=== PATIENT | female | born 1995 | race Caucasian/White ===

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

== ENCOUNTER 2017-11-03 07:06 | Emergency (ER) | payer OTHER ==
[2017-11-03 07:12] VITALS: BP 120/72; PULSE 104; TEMP 99; BMI 43.4
[2017-11-03 08:09] LABS: URINE APPEARANCE CLOUDY; URINE BILIRUBIN NEGATIVE (<2.0 mg/dL); URINE COLOR YELLOW; URINE GLUCOSE (UA) NEGATIVE (NEGATIVE); URINE KETONE NEGATIVE (NEGATIVE); URINE NITRITE NEGATIVE (NEGATIVE); URINE PROTEIN NEGATIVE (NEGATIVE); URINE UROBILINOGEN NEGATIVE mg/dL (0.2-1.0)
[2017-11-03 08:14] LABS: URINE LEUK ESTERASE 1+ (NEGATIVE)
[2017-11-03 08:17] LABS: EPI CELLS FEW /HPF (FEW); URINE BACTERIA RARE /hpf (NONE SEEN); URINE HYALINE CAST 1 /lpf; URINE MUCUS MODERATE
--- NOTE | 2017-11-03 08:27 | PDOC ---
History of Present Illness - General History Source: Patient Exam Limitations: No Limitations - History of Present Illness Initial Comments: 11/03/17 08:29 The patient is a 22 year old female, with a significant past medical history of chronic back pain (Fell 2 years ago), who presents to the emergency department complaining of back pain that has exacerbated. She reports that her pain is constant but has exacerbated today. She reports that she has been having pain since her fall. She describes her fall as localized in the lower back region, ranging from mild to moderate, without radiation. She notes that certain positions exacerbates her pain. She denies following up with any kind of specialists. She notes that she has not gotten her menstrual period in the past 2 years, which she doesnt know why. She denies any other kind of symptoms The patient denies chest pain, shortness of breath, headache or dizziness. Denies fever, chills, nausea, vomiting, diarrhea and constipation. Denies dysuria, frequency, urgency and hematuria. Allergies: None Past surgical history: None reported Social History: No alcohol, tobacco or drug use reported <Jose Yeager - Last Filed: 11/03/17 08:29> - General History Source: Patient Exam Limitations: No Limitations <Char Blackman - Last Filed: 11/03/17 09:32> - General Chief Complaint: Back Pain Stated Complaint: BACK PAIN Time Seen by Provider: 11/03/17 07:09 Past History <Jose Yeager - Last Filed: 11/03/17 08:29> - Past Medical History COPD: No - Immunization History Immunization Up to Date: Yes - Suicide/Smoking/Psychosocial Hx Smoking Status: No Smoking History: Never smoked Number of Cigarettes Smoked Daily: 0 Hx Alcohol Use: No <Char Blackman - Last Filed: 11/03/17 09:32> - Past Medical History Allergies/Adverse Reactions: Allergies Allergy/AdvReac Type Severity Reaction Status Date / Time No Known Allergies Allergy Verified 11/03/17 07:12 Home Medications: Ambulatory Orders Naproxen [Naprosyn -] 500 mg PO BID PRN #14 tablet 08/19/16 Ibuprofen [Motrin -] 600 mg PO TID #90 tablet MDD 3 11/03/17 Review of Systems - Review of Systems Able to Perform ROS?: Yes Comments:: 11/03/17 08:29 GENERAL/CONSTITUTIONAL: No fever or chills. No weakness. HEAD, EYES, EARS, NOSE AND THROAT: No change in vision. No ear pain or discharge. No sore throat. CARDIOVASCULAR: No chest pain or shortness of breath. RESPIRATORY: No cough, wheezing, or hemoptysis. GASTROINTESTINAL: No nausea, vomiting, diarrhea or constipation. GENITOURINARY: No dysuria, frequency, or change in urination. MUSCULOSKELETAL: (+) Back pain. No joint or muscle swelling or pain. No neck pain. SKIN: No rash NEUROLOGIC: No headache, vertigo, loss of consciousness, or change in strength/ sensation. ENDOCRINE: No increased thirst. No abnormal weight change. HEMATOLOGIC/LYMPHATIC: No anemia, easy bleeding, or history of blood clots. ALLERGIC/IMMUNOLOGIC: No hives or skin allergy. <Jose Yeager - Last Filed: 11/03/17 08:29> *Physical Exam - Vital Signs Last Vital Signs Temp Pulse Resp BP Pulse Ox 99.0 F 104 H 20 120/72 8 L 11/03/17 07:09 11/03/17 07:09 11/03/17 07:09 11/03/17 07:09 11/03/17 07:09 - Physical Exam Comments: 11/03/17 08:29 GENERAL: Awake, alert, and fully oriented, in no acute distress HEAD: No signs of trauma EYES: PERRLA, EOMI, sclera anicteric, conjunctiva clear ENT: Auricles normal inspection, nares patent. Moist mucosa NECK: Normal ROM, supple, no JVD, or masses LUNGS: Breath sounds equal, clear to auscultation bilaterally. No wheezes, and no crackles HEART: Regular rate and rhythm, normal S1 and S2, no murmurs, rubs or gallops ABDOMEN: Soft, nontender, normoactive bowel sounds. No guarding, no rebound. No masses MUSCULOSKELETAL: (+) Paraspinal tendernes on the right side over the muscle. No CVA tenderness. EXTREMITIES: Normal range of motion, no edema. No clubbing or cyanosis. No cords, erythema, or tenderness NEUROLOGICAL: Alert and oriented x 3. Moves all extremities. Face is symmetric. 5/5 strength in lower extremities bilaterally. Sensation intact in all extremities. SKIN: Warm, Dry, normal turgor, no rashes or lesions noted. <Jose Yeager - Last Filed: 11/03/17 08:29> - Vital Signs Last Vital Signs Temp Pulse Resp BP Pulse Ox 99.0 F 104 H 20 120/72 8 L 11/03/17 07:09 11/03/17 07:09 11/03/17 07:09 11/03/17 07:09 11/03/17 07:09 <Char Blackman - Last Filed: 11/03/17 09:32> ED Treatment Course - ADDITIONAL ORDERS Additional order review: Laboratory Results 11/03/17 07:48 Urine Color Yellow Urine Appearance Cloudy Urine pH 6.0 Ur Specific [place] 1.018 Urine Protein Negative Urine Glucose (UA) Negative Urine Ketones Negative Urine Blood Negative Urine Nitrite Negative Urine Bilirubin Negative Urine Urobilinogen Negative Ur Leukocyte Esterase 1+ H <Jose Yeager - Last Filed: 11/03/17 08:29> - ADDITIONAL ORDERS Additional order review: Laboratory Results 11/03/17 07:48 Urine Color Yellow Urine Appearance Cloudy Urine pH 6.0 Ur Specific [place] 1.018 Urine Protein Negative Urine Glucose (UA) Negative Urine Ketones Negative Urine Blood Negative Urine Nitrite Negative Urine Bilirubin Negative Urine Urobilinogen Negative Ur Leukocyte Esterase 1+ H <Char Blackman - Last Filed: 11/03/17 09:32> Medical Decision Making - Medical Decision Making 11/03/17 08:22 22-year-old female with a history of chronic low back pain here today complaining of low back pain for the last few days. She has had intermittently for 2 years states she was moving some things a few days ago may have exacerbated her symptoms denies any weakness numbness tingling no urinary complaints pain is moderate and worse with bending X On exam she is fully intact for strength and sensation in lower extremities has right paraspinal muscle spasm and tenderness X No signs of neurological compromise likely sciatica low back strain will treat with Motrin recommend follow-up with PCP for outpatient physical therapy [facility] rule out UTI and <Char Blackman - Last Filed: 11/03/17 09:32> *DC/Admit/Observation/Transfer - Attestations Scribe Attestion: 11/03/17 08:29 Documentation prepared by Jose Yeager, acting as medical records tech for Char Blackman MD <Jose Yeager - Last Filed: 11/03/17 08:29> - Discharge Dispostion Decision to Admit order: No <Char Blackman - Last Filed: 11/03/17 09:32> Diagnosis at time of Disposition: Low back strain - Discharge Dispostion Disposition: HOME Condition at time of disposition: Improved - Prescriptions Prescriptions: Ibuprofen [Motrin -] 600 mg PO TID #90 tablet MDD 3 - Referrals Referrals: Linda Nguyen [Primary Care Provider] - - Patient Instructions Printed Discharge Instructions: Back Pain (Alternative Therapy) Additional Instructions: Take motrin 600 mg every 8 hrs as needed for pain. return for any weakness, or numbness or any concerns you should follow up with your primary doctor to discuss physical therapy - Post Discharge Activity
[2017-11-03] MEDS ORDERED: KETOROLAC TROMETHAMINE 30 MG/1 ML VIAL IM ONE (09:32)
[2017-11-03] MEDS ORDERED: KETOROLAC TROMETHAMINE 30 MG/1 ML VIAL ONE (09:33)
== END 2017-11-03 10:00 | disposition home or self-care (01) ==
LOC: JER 07:06
PROC: 3E0233Z Introduction of Anti-inflammatory into Muscle, Percutaneous Approach (ICD-10-PCS; principal; 2017-11-03)
DX: S39.012A Strain of muscle, fascia and tendon of lower back, initial encounter (principal); X50.0XXA Overexertion from strenuous movement or load, initial encounter; Y93.89 Activity, other specified; Y92.89 Other specified places as the place of occurrence of the external cause; Y99.8 Other external cause status
CPT/HCPCS: 81003; 81015; 84703; 96372; 99281-25

== ENCOUNTER 2017-11-20 16:44 | Emergency (ER) | payer OTHER ==
[2017-11-20 17:03] VITALS: BP 130/68; PULSE 100; TEMP 98.6; BMI 42.0
--- NOTE | 2017-11-20 17:03 | PDOC ---
Rapid Medical Evaluation Time Seen by Provider: 11/20/17 17:00 Medical Evaluation: Allergies Allergy/AdvReac Type Severity Reaction Status Date / Time No Known Allergies Allergy Verified 11/20/17 17:00 11/20/17 17:00 I have performed a brief in-person evaluation of this patient. The patient presents with a chief complaint of: c/o itching to vagina x 1 week. Denies fevers/ or discharge, Pertinent physical exam findings: deferred I have ordered the following: UA/ UCG The patient will proceed to the ED for further evaluation. 11/20/17 17:02
[2017-11-20 17:35] LABS: URINE APPEARANCE CLEAR; URINE BILIRUBIN NEGATIVE (<2.0 mg/dL); URINE BLOOD NEGATIVE (NEGATIVE); URINE COLOR YELLOW; URINE GLUCOSE (UA) NEGATIVE (NEGATIVE); URINE KETONE NEGATIVE (NEGATIVE); URINE LEUK ESTERASE NEGATIVE (NEGATIVE); URINE NITRITE NEGATIVE (NEGATIVE); URINE PROTEIN NEGATIVE (NEGATIVE); URINE UROBILINOGEN NEGATIVE mg/dL (0.2-1.0)
[2017-11-20] MEDS ORDERED: FLUCONAZOLE 100 MG TABLET (UD) PO ONE (18:18)
--- NOTE | 2017-11-20 18:24 | PDOC ---
History of Present Illness - General Chief Complaint: Vaginal Sxs Stated Complaint: INFECTION Time Seen by Provider: 11/20/17 17:00 History Source: Patient Exam Limitations: No Limitations - History of Present Illness Initial Comments: 11/20/17 18:23 22 year old female with no medical or surgical history presents with complaints of vaginal irritation x 2 weeks. Patient states no vaginal discharge, just burning, itching and irritation of vagina. Worse when showering or walking. States vagina swelling. used vagisil cream externally with no relief. Never been sexually active 11/20/17 18:25 Timing/Duration: reports: constant Quality: reports: moderate Pain Radiation: reports: no radiation Activities at Onset: reports: none Treatment Prior to Arrive: improves with: other (vagisil cream) Aggravating Factors: improves with: None Alleviating Factors: improves with: None Past History - Travel Traveled outside of the country in the last 30 days: No Close contact w/someone who was outside of country & ill: No - Past Medical History Allergies/Adverse Reactions: Allergies Allergy/AdvReac Type Severity Reaction Status Date / Time No Known Allergies Allergy Verified 11/20/17 17:00 Home Medications: Ambulatory Orders NK [No Known Home Medication] 11/20/17 COPD: No - Immunization History Immunization Up to Date: Yes - Suicide/Smoking/Psychosocial Hx Smoking Status: No Smoking History: Never smoked Number of Cigarettes Smoked Daily: 0 Hx Alcohol Use: No Abd/GI Specific PMHX - Complaint Specific PMHX Colitis: No Diverticulitis: No Gall Bladder Disease: No Irritable Bowel Synd (IBS): No Pancreatitis: No Review of Systems - Review of Systems Able to Perform ROS?: Yes Is the patient limited Croatian proficient: No Constitutional: No: Chills, Fever HEENTM: No: Nose Pain, Nose Congestion, Throat Swelling, Mouth Pain Respiratory: No: Orthopnea, Shortness of Breath, Wheezing, Productive cough Cardiac (ROS): No: Chest Pain, Lightheadedness, Palpitations ABD/GI: No: Abdominal Distended, Blood Streaked Bowels, Poor Appetite : Yes: Burning. No: Discharge, Frequency, Hematuria, Incontinence Musculoskeletal: No: Back Pain, Muscle Weakness Integumentary: No: Bruising, Other Neurological: No: Headache Psychiatric: No: Stressors Endocrine: No: Excessive Sweating *Physical Exam - Vital Signs Last Vital Signs Temp Pulse Resp BP Pulse Ox 98.6 F 100 H 20 130/68 97 11/20/17 17:00 11/20/17 17:00 11/20/17 17:00 11/20/17 17:00 11/20/17 17:00 - Physical Exam General Appearance: Yes: Nourished, Appropriately Dressed. No: Apparent Distress HEENT: positive: EOMI, TATYANA, TMs Normal, Pharynx Normal Neck: positive: Supple. 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 NML intact, Fully Oriented Medical Decision Making - Medical Decision Making 11/20/17 18:27 22 year old female with vaginal irritation, itching and swelling x 2 weeks genital culture diflucan urinalysis sent *DC/Admit/Observation/Transfer Diagnosis at time of Disposition: Vaginitis and vulvovaginitis - Discharge Dispostion Disposition: HOME Condition at time of disposition: Good Decision to Admit order: No - Referrals Referrals: Macho Jang MD [Staff Physician] - - Patient Instructions Printed Discharge Instructions: DI for Vaginal Yeast Infection, DI for Vaginal Itching Additional Instructions: Please include slovak yogurt in your diet. May continue to use vagisil externally Call wardrobe specialty worker for follow up appointment if symptoms persist - Post Discharge Activity Forms/Work/School Notes: Back to Work
[2017-11-20] MEDS ORDERED: FLUCONAZOLE 100 MG TABLET (UD) ONE (18:25)
[2017-11-20 18:26] LABS: HCG,QUALITATIVE URINE NEGATIVE
== END 2017-11-20 18:57 | disposition home or self-care (01) ==
LOC: JERFT 16:44
DX: N76.0 Acute vaginitis (principal)
CPT/HCPCS: 81003; 84703; 87070; 87205; 99281-25

== ENCOUNTER 2018-03-18 15:12 | Emergency (ER) | payer OTHER ==
[2018-03-18 15:18] VITALS: BP 144/60; PULSE 125; TEMP 98.9; BMI 44.8
--- NOTE | 2018-03-18 15:19 | PDOC ---
Rapid Medical Evaluation Time Seen by Provider: 03/18/18 15:14 Medical Evaluation: Allergies Allergy/AdvReac Type Severity Reaction Status Date / Time No Known Allergies Allergy Verified 11/20/17 17:00 I have performed a brief in-person evaluation of this patient. The patient presents with a chief complaint of: left sided back pain that radiates to left side since yesterday. Worse with movement and deep breaths. Patient was training and picking up heavy objects today, which made worse. Pertinent physical exam findings: reproducible pain with palpation of left lower thoracic paravertebral muscles. +left CVA TTP and left flank pain I have ordered the following: hcg, UA/culture, labs The patient will proceed to the ED for further evaluation Discharge Disposition - Diagnosis Back pain, Flank pain - Referrals - Patient Instructions - Post Discharge Activity
[2018-03-18 15:50] LABS: EOS % 0.8 % (0-4.5); HEMATOCRIT 39.8 % (32.4-45.2); HEMOGLOBIN 13.4 GM/dL (10.7-15.3); LYMPH % 29.6 % (8-40); MCHC 33.6 g/dl (32.0-36.0); MEAN CELL VOLUME 86.4 fl (80-96); MEAN PLT VOLUME 7.9 fl (7.5-11.1); MONO % 5.2 % (3.8-10.2); NEUT % 63.4 % (42.8-82.8); PLATELET COUNT 357 K/MM3 (134-434); RBC 4.61 M/mm3 (3.60-5.2); RDW 13.6 % (11.6-15.6); WHITE BLOOD COUNT 11.7 K/mm3 (4.0-10.0)
[2018-03-18 16:14] LABS: ALBUMIN 3.6 g/dl (3.4-5.0); ALK PHOS 91 U/L (45-117); ANION GAP 7 MMOL/L (8-16); BILIRUBIN,TOTAL 0.2 mg/dL (0.2-1); BLOOD UREA NITROGEN 7 mg/dL (7-18); CHLORIDE 105 mmol/L (98-107); CO2 26 mmol/L (21-32); CREATININE 0.8 mg/dL (0.55-1.3); GLUCOSE,RANDOM 106 mg/dL (74-106); POTASSIUM 4.1 mmol/L (3.5-5.1); SGOT/AST 38 U/L (15-37); SGPT/ALT 65 U/L (13-61); SODIUM 138 mmol/L (136-145); TOT PROT 7.6 g/dl (6.4-8.2)
[2018-03-18 16:28] LABS: URINE APPEARANCE CLOUDY; URINE BILIRUBIN NEGATIVE (<2.0 mg/dL); URINE COLOR YELLOW; URINE GLUCOSE (UA) NEGATIVE (NEGATIVE); URINE KETONE NEGATIVE (NEGATIVE); URINE NITRITE NEGATIVE (NEGATIVE); URINE PROTEIN NEGATIVE (NEGATIVE); URINE UROBILINOGEN NEGATIVE mg/dL (0.2-1.0)
[2018-03-18 16:34] LABS: HCG,QUALITATIVE URINE Negative; URINE LEUK ESTERASE 2+ (NEGATIVE)
[2018-03-18 16:41] LABS: EPI CELLS MODERATE /HPF (FEW); URINE BACTERIA RARE /hpf (NONE SEEN); URINE MUCUS RARE
[2018-03-18] MEDS ORDERED: KETOROLAC TROMETHAMINE 15 MG/ML VIAL IVPUSH ONE (17:07)
[2018-03-18] MEDS ORDERED: SODIUM CHLORIDE 1,000 ML IV STA (17:07)
--- NOTE | 2018-03-18 17:07 | PDOC ---
History of Present Illness - General Chief Complaint: Pain, Acute Stated Complaint: BACK PAIN, SOB Time Seen by Provider: 03/18/18 15:14 Past History - Past Medical History Allergies/Adverse Reactions: Allergies Allergy/AdvReac Type Severity Reaction Status Date / Time No Known Allergies Allergy Verified 03/18/18 15:17 Home Medications: Ambulatory Orders Cephalexin Monohydrate [Keflex -] 500 mg PO BID #14 capsule 03/18/18 Ibuprofen 800 mg PO TID #30 tablet 03/18/18 COPD: No - Immunization History Immunization Up to Date: Yes - Suicide/Smoking/Psychosocial Hx Smoking Status: No Smoking History: Never smoked Number of Cigarettes Smoked Daily: 0 Hx Alcohol Use: No *Physical Exam - Vital Signs Last Vital Signs Temp Pulse Resp BP Pulse Ox 98.9 F 125 H 18 144/60 97 03/18/18 15:14 03/18/18 15:14 03/18/18 15:14 03/18/18 15:14 03/18/18 15:14 ED Treatment Course - LABORATORY CBC & Chemistry Diagram: 03/18/18 15:37 03/18/18 15:37 - ADDITIONAL ORDERS Additional order review: Laboratory Results 03/18/18 03/18/18 16:00 15:37 Sodium 138 Potassium 4.1 Chloride 105 Carbon Dioxide 26 Anion Gap 7 L BUN 7 Creatinine 0.8 Creat Clearance w eGFR > 60 Random Glucose 106 Calcium 9.0 Total Bilirubin 0.2 AST 38 H ALT 65 H Alkaline Phosphatase 91 Total Protein 7.6 Albumin 3.6 Urine Color Yellow Urine Appearance Cloudy Urine pH 6.0 Ur Specific [place] 1.023 Urine Protein Negative Urine Glucose (UA) Negative Urine Ketones Negative Urine Blood Negative Urine Nitrite Negative Urine Bilirubin Negative Urine Urobilinogen Negative Ur Leukocyte Esterase 2+ H Urine WBC (Auto) 8 Urine RBC (Auto) 5 Ur Epithelial Cells Moderate Urine Bacteria Rare Urine Mucus Rare Urine HCG, Qual Negative 03/18/18 15:37 RBC 4.61 MCV 86.4 MCHC 33.6 RDW 13.6 MPV 7.9 Neutrophils % 63.4 Lymphocytes % 29.6 Monocytes % 5.2 Eosinophils % 0.8 Basophils % 1.0 *DC/Admit/Observation/Transfer Diagnosis at time of Disposition: Back pain Qualifiers: Back pain location: thoracic back pain Chronicity: acute Back pain laterality: left Qualified Code(s): M54.6 - Pain in thoracic spine UTI (urinary tract infection) Qualifiers: Urinary tract infection type: acute cystitis Hematuria presence: without hematuria Qualified Code(s): N30.00 - Acute cystitis without hematuria - Discharge Dispostion Disposition: HOME Condition at time of disposition: Stable Decision to Admit order: No - Referrals Referrals: Rogerio Tejeda MD [Staff Physician] - - Patient Instructions Printed Discharge Instructions: DI for Urinary Tract Infection (UTI), DI for Thoracic Back Pain Additional Instructions: You have a urinary tract infection. This caused by bacteria. Please drink plenty of fluids. Take your antibiotics as prescribed. Finish the entire dose even if you feel better. You may take Tylenol or Motrin as needed for pain Please follow up with your primary care doctor this week. Return to the emergency department if you have fevers, chills, nausea, vomiting , back pain, or have any changes in your symptoms. You have back pain due to a muscle spasm. Please take ibuprofen 800 mg 3 times a day not to exceed 3000 mg a day. You may use warm compresses on your back to help with her symptoms. Please follow-up with your primary care doctor. If your symptoms do not resolve in 3-5 days, follow-up with orthopedics. A referral has been provided for you. Return to the emergency department if you have worsening back pain, bladder or bowel incontinence, numbness and tingling in her legs, changes in the way you walk, or any new or worsening symptoms. - Post Discharge Activity Forms/Work/School Notes: Back to Work
[2018-03-18] MEDS ORDERED: KETOROLAC TROMETHAMINE 15 MG/ML VIAL ONE (17:10)
== END 2018-03-18 18:43 | disposition home or self-care (01) ==
LOC: JERFT 15:12
PROC: 3E0337Z Introduction of Electrolytic and Water Balance Substance into Peripheral Vein, Percutaneous Approach (ICD-10-PCS; principal; 2018-03-18)
PROC: 3E0333Z Introduction of Anti-inflammatory into Peripheral Vein, Percutaneous Approach (ICD-10-PCS; 2018-03-18)
DX: N30.00 Acute cystitis without hematuria (principal)
CPT/HCPCS: 36415; 80053; 81003; 81015; 84703; 85025; 87086; 96361; 96374; 99281-25; J7030

== ENCOUNTER 2018-07-02 06:51 | Observation (INO) | payer OTHER ==
--- NOTE | 2018-07-02 07:13 | PDOC ---
History of Present Illness - General Chief Complaint: Pain, Acute Stated Complaint: R SIDED PAIN Time Seen by Provider: 07/02/18 07:13 History Source: Patient Exam Limitations: No Limitations - History of Present Illness Initial Comments: 07/02/18 07:35 CHIEF COMPLAINT: HISTORY OF PRESENT ILLNESS: This is an otherwise healthy 22-year-old female with recent ED visit for back pain/UTI who presents today for evaluation of right upper abdominal pain. she reports that the pain woke her from sleep at 3am today and has been constant since. She has had nausea without vomiting. She denies fevers/chills, constipation, diarrhea, or any other symptoms. She denies travel, recently eating in restaurants, and sick contacts. She has not taken any medications for her symptoms. 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 Sahni (?) [address] REVIEW OF SYSTEMS: GENERAL/CONSTITUTIONAL: No fever or chills. No weakness. No weight change. HEAD, EYES, EARS, NOSE AND THROAT: No change in vision. No ear pain or discharge. No sore throat. CARDIOVASCULAR: No chest pain or palpitations. RESPIRATORY: No cough, wheezing, or shortness of breath. GASTROINTESTINAL: See HPI. GENITOURINARY: No dysuria, frequency, or change in urination. LMP x 3 yrs ago, has not consulted a physician. MUSCULOSKELETAL: No joint or muscle swelling or pain. No neck or back pain. SKIN: No rash or easy bruising. NEUROLOGIC: No headache, vertigo, loss of consciousness, or loss of sensation. PSYCHIATRIC: No depression or anxiety. ENDOCRINE: No increased thirst. No abnormal weight change. HEMATOLOGIC/LYMPHATIC: No anemia, easy bleeding, or history of blood clots. ALLERGIC/IMMUNOLOGIC: No hives or skin allergy. No latex allergy. PHYSICAL EXAM: GENERAL: The patient is awake, alert, and fully oriented, in some distress secondary to pain. HEAD: Normal with no signs of trauma. ENT: Pupils equal, round and reactive to light, extraocular movements intact, sclera anicteric, conjunctiva clear. Neck supple. LUNGS: Clear to auscultation bilaterally. Normal excursion. No respiratory distress or use of accessory muscles. CV: RRR, S1/S2, no MRG. Cap refill < 2 sec. ABDOMEN: Soft, obese, tender to gentle palpation in RUQ. No other focal tenderness. EXTREMITIES: Normal range of motion, no edema. NEUROLOGICAL: Normal speech, normal gait. CN II-XII grossly intact. PSYCH: Normal mood, normal affect. SKIN: Warm, dry, normal turgor, no rashes or lesions noted. 07/02/18 13:37 Past History - Past Medical History Allergies/Adverse Reactions: Allergies Allergy/AdvReac Type Severity Reaction Status Date / Time No Known Allergies Allergy Verified 07/02/18 07:07 Home Medications: Ambulatory Orders NK [No Known Home Medication] 07/02/18 COPD: No - Immunization History Immunization Up to Date: Yes - Suicide/Smoking/Psychosocial Hx Smoking Status: No Smoking History: Never smoked Number of Cigarettes Smoked Daily: 0 Hx Alcohol Use: No *Physical Exam - Vital Signs Last Vital Signs Temp Pulse Resp BP Pulse Ox 98.2 F 98 H 14 127/86 97 07/02/18 07:04 07/02/18 07:04 07/02/18 07:04 07/02/18 07:04 07/02/18 07:04 Moderate Sedation - Procedure Monitoring Vital Signs: Procedure Monitoring Vital Signs Temperature 98.2 F 07/02/18 07:04 Pulse Rate 98 H 07/02/18 07:04 Respiratory Rate 14 07/02/18 07:04 Blood Pressure 127/86 07/02/18 07:04 O2 Sat by Pulse Oximetry (%) 97 07/02/18 07:04 ED Treatment Course - LABORATORY CBC & Chemistry Diagram: 07/02/18 07:58 07/02/18 07:58 Medical Decision Making - Medical Decision Making 07/02/18 08:41 A/P: Healthy 22-year-old female with RUQ pain and nausea. Differential includes but is not limited to cholelithiasis, cholecystitis, musculoskeletal pain. 1. CXR 2. RUQ u/s 3. Labs including CBC, CMP, lipase, UA/urine hcg 4. Toradol 30mg IV for pain 5. Re-assess WBC mildly elevated at 10.1, LFTs within normal limits. 07/02/18 09:48 Pain unchanged following Toradol. Will give morphine 4mg IVP. 07/02/18 10:47 Pain improved, however still with some tender (primarily epigastric) on exam. U/s without definite evidence of cholecystitis; there is hepatomegaly with fatty infiltration and possible sludge. LFTs are within normal limits. Still with pain. Given Maaolox and Pepcid without improvement. 07/02/18 13:02 Patient re-evaluated and complains of severe pain. Will give Ofirmev 1g IVPB. Patient does not feel well enough to go home. Will place in observation with surgical consultation. *DC/Admit/Observation/Transfer Diagnosis at time of Disposition: Biliary colic - Discharge Dispostion Condition at time of disposition: Guarded Decision to Admit order: Yes - Referrals Referrals: Linda Nguyen [Primary Care Provider] - - Patient Instructions - Post Discharge Activity
[2018-07-02] MEDS ORDERED: KETOROLAC TROMETHAMINE 30 MG/1 ML VIAL IVPUSH ONE (07:49)
[2018-07-02] MEDS ORDERED: KETOROLAC TROMETHAMINE 30 MG/1 ML VIAL ONE (08:04)
[2018-07-02 08:06] LABS: BASO % 0.6 % (0-2.0); HEMATOCRIT 39.1 % (32.4-45.2); HEMOGLOBIN 13.7 GM/dL (10.7-15.3); MCH 30.1 pg (25.7-33.7); MCHC 35.1 g/dl (32.0-36.0); MEAN CELL VOLUME 85.9 fl (80-96); MEAN PLT VOLUME 7.9 fl (7.5-11.1); MONO % 5.4 % (3.8-10.2); PLATELET COUNT 323 K/MM3 (134-434); RBC 4.55 M/mm3 (3.60-5.2); WHITE BLOOD COUNT 10.1 K/mm3 (4.0-10.0)
[2018-07-02 08:13] LABS: HCG,QUALITATIVE URINE Negative
[2018-07-02 08:18] LABS: URINE APPEARANCE SLCLOUDY; URINE BILIRUBIN NEGATIVE (<2.0 mg/dL); URINE COLOR YELLOW; URINE GLUCOSE (UA) NEGATIVE (NEGATIVE); URINE KETONE NEGATIVE (NEGATIVE); URINE LEUK ESTERASE TRACE (NEGATIVE); URINE NITRITE NEGATIVE (NEGATIVE); URINE PROTEIN NEGATIVE (NEGATIVE)
[2018-07-02 08:34] LABS: ALBUMIN 3.5 g/dl (3.4-5.0); ALK PHOS 81 U/L (45-117); ANION GAP 8 MMOL/L (8-16); BILIRUBIN,TOTAL 0.3 mg/dL (0.2-1); BLOOD UREA NITROGEN 10 mg/dL (7-18); CALCIUM 9.3 mg/dL (8.5-10.1); CHLORIDE 105 mmol/L (98-107); CO2 26 mmol/L (21-32); CREATININE 0.6 mg/dL (0.55-1.3); GLUCOSE,RANDOM 100 mg/dL (74-106); LIPASE 146 U/L (73-393); POTASSIUM 4.4 mmol/L (3.5-5.1); SGOT/AST 23 U/L (15-37); SGPT/ALT 44 U/L (13-61); SODIUM 139 mmol/L (136-145); TOT PROT 7.2 g/dl (6.4-8.2)
[2018-07-02 08:54] LABS: EPI CELLS FEW /HPF (FEW); URINE HYALINE CAST 1 /lpf; URINE MUCUS FEW
[2018-07-02] MEDS ORDERED: morphine CARPU-JECT 4 MG/1 ML DISP.SYRIN IVPUSH ONE (09:48)
[2018-07-02] MEDS ORDERED: morphine SULFATE 4 MG/ML VIAL ONE (09:55)
[2018-07-02] MEDS ORDERED: RANITIDINE HCL 150 MG TABLET (FP) PO ONE (10:49)
[2018-07-02] MEDS ORDERED: MAG HYDROX/AL HYDROX/SIMETH 30 ML UNIT-DOSE CUP PO ONE (10:49)
[2018-07-02] MEDS ORDERED: RANITIDINE HCL 150 MG TABLET (FP) ONE (10:57)
[2018-07-02] MEDS ORDERED: MAG HYDROX/AL HYDROX/SIMETH 30 ML UNIT-DOSE CUP ONE (10:57)
--- NOTE | 2018-07-02 11:12 | PDOC ---
*Physical Exam - Vital Signs Last Vital Signs Temp Pulse Resp BP Pulse Ox 98.2 F 98 H 14 127/86 97 07/02/18 07:04 07/02/18 07:04 07/02/18 07:04 07/02/18 07:04 07/02/18 07:04 - Physical Exam Comments: 07/02/18 11:10 Vital signs normal, urine negative No jaundice or pallor, moist mucosa Heart is regular, lungs are clear Epigastric discomfort to palpation without guarding or rebound, no guarding the right upper quadrant, no CVA tenderness ED Treatment Course - LABORATORY CBC & Chemistry Diagram: 07/02/18 07:58 07/02/18 07:58 - ADDITIONAL ORDERS Additional order review: Laboratory Results 07/02/18 07/02/18 07:58 07:58 Sodium 139 Potassium 4.4 Chloride 105 Carbon Dioxide 26 Anion Gap 8 BUN 10 Creatinine 0.6 Creat Clearance w eGFR > 60 Random Glucose 100 Calcium 9.3 Total Bilirubin 0.3 AST 23 ALT 44 Alkaline Phosphatase 81 Total Protein 7.2 Albumin 3.5 Lipase 146 Urine Color Yellow Urine Appearance Slcloudy Urine pH 5.0 Ur Specific [place] 1.024 Urine Protein Negative Urine Glucose (UA) Negative Urine Ketones Negative Urine Blood Negative Urine Nitrite Negative Urine Bilirubin Negative Urine Urobilinogen 2.0 H Ur Leukocyte Esterase Trace Urine WBC (Auto) 6 Urine RBC (Auto) 1 Ur Epithelial Cells Few Hyaline Casts 1 Urine Mucus Few Urine HCG, Qual Negative 07/02/18 07:58 RBC 4.55 MCV 85.9 MCHC 35.1 RDW 13.0 MPV 7.9 Neutrophils % 63.0 Lymphocytes % 30.0 Monocytes % 5.4 Eosinophils % 1.0 Basophils % 0.6 - Medications Given in the ED: ED Medications Discontinued Medications Generic Name Dose Route Start Last Admin Trade Name Freq PRN Reason Stop Dose Admin Al Hydroxide/Mg Hydroxide 30 ml 07/02/18 10:49 07/02/18 10:58 Mylanta Oral Suspension - PO 07/02/18 10:50 30 ml ONCE ONE Administration Ketorolac Tromethamine 30 mg 07/02/18 07:49 07/02/18 08:07 Toradol Injection - IVPUSH 07/02/18 07:50 30 mg ONCE ONE Administration Morphine Sulfate 4 mg 07/02/18 09:48 07/02/18 10:01 Morphine Injection - IVPUSH 07/02/18 09:49 4 mg ONCE ONE Administration Ranitidine HCl 150 mg 07/02/18 10:49 07/02/18 10:58 Zantac - PO 07/02/18 10:50 150 mg ONCE ONE Administration Medical Decision Making - Medical Decision Making 07/02/18 11:10 Healthy 22-year-old female presents with upper abdominal pain with nonbloody nonbilious nausea/vomiting that awoke her from sleep around 3 AM, no history of recurrent postprandial abdominal pain, no history of gastritis or ulcers or endoscopies, last meal was 5 PM and denies any excessive alcohol or NSAID use. Exam localizes to the epigastric region Presentation seems most consistent with gastritis, rule out biliary disease versus pancreatitis. Labs are within normal limits, white count 10.1 with normal LFTs and lipase Ultrasound shows no evidence of cholecystitis but some sludge without wall thickening By mouth trial, surgery to see, disposition accordingly *DC/Admit/Observation/Transfer - Referrals Referrals: Linda Nguyen [Primary Care Provider] - - Patient Instructions - Post Discharge Activity
[2018-07-02] MEDS ORDERED: ONDANSETRON 4 MG/2 ML VIAL IVPUSH ONE (11:47)
[2018-07-02] MEDS ORDERED: ONDANSETRON 4 MG/2 ML VIAL ONE (11:55)
[2018-07-02] MEDS ORDERED: ACETAMINOPHEN 1000 MG/100 ML VIAL (NON FORMULARY) IVPB ONE (13:04)
[2018-07-02] MEDS ORDERED: ACETAMINOPHEN INJECTION 100 ML IVPB ONE (13:39)
[2018-07-02] MEDS ORDERED: ONDANSETRON 4 MG/2 ML VIAL IVPUSH PRN (18:58)
[2018-07-02] MEDS ORDERED: SODIUM CHLORIDE 1,000 ML IV SCH (19:00)
[2018-07-02] MEDS ORDERED: ACETAMINOPHEN 1000 MG/100 ML VIAL (NON FORMULARY) IVPB PRN (19:01)
--- NOTE | 2018-07-02 19:11 | HP ---
Admitting History and Physical - Admission Chief Complaint: RUQ pain History of Present Illness: Patient is a 22 y/o female with no significant past medical history. Patient states that she woke up at 3am to RUQ pain with nausea. Pain is described as constant, sharp, and non-radiating. LFTs normal. Abdominal US show hepatomegaly with fatty infiltration versus hepatocellular disease, suggestion of poorly visualized small sludge layering posteriorly without sonographic evidence of acute cholecystitis She denies any vomiting, diarrhea, fever. History Source: Patient Limitations to Obtaining History: No Limitations - Smoking History Smoking history: Never smoked Aproximately how many cigarettes per day: 0 - Alcohol/Substance Use Hx Alcohol Use: No - Social History ADL: Independent History of Recent Travel: No <Adry Givens - Last Filed: 07/02/18 19:25> Home Medications <Adry Givens - Last Filed: 07/02/18 19:25> <Deangelo Escalera - Last Filed: 07/05/18 21:22> - Allergies Allergies/Adverse Reactions: Allergies Allergy/AdvReac Type Severity Reaction Status Date / Time No Known Allergies Allergy Verified 07/02/18 07:07 - Home Medications Home Medications: Ambulatory Orders Ursodiol [Actigal -] 300 mg PO BID #28 capsule 07/05/18 levoFLOXacin [Levaquin -] 500 mg PO DAILY #6 tablet 07/05/18 metroNIDAZOLE [Flagyl -] 250 mg PO TID #42 tablet 07/05/18 Review of Systems - Review of Systems Constitutional: reports: No Symptoms Eyes: reports: No Symptoms HENT: reports: No Symptoms Neck: reports: No Symptoms Cardiovascular: reports: No Symptoms Respiratory: reports: No Symptoms Gastrointestinal: reports: Abdominal Pain (RUQ), Nausea Genitourinary: reports: No Symptoms Breasts: reports: No Symptoms Reported Musculoskeletal: reports: No Symptoms Integumentary: reports: No Symptoms Neurological: reports: No Symptoms Endocrine: reports: No Symptoms Hematology/Lymphatic: reports: No Symptoms Psychiatric: reports: No Symptoms <Adry Givens - Last Filed: 07/02/18 19:25> Physical Examination Vital Signs: Vital Signs Temperature 98.0 F 07/02/18 17:07 Pulse Rate 80 07/02/18 17:07 Respiratory Rate 18 07/02/18 17:07 Blood Pressure 106/56 L 07/02/18 17:07 O2 Sat by Pulse Oximetry (%) 98 07/02/18 17:07 Constitutional: Yes: Well Nourished, Calm Eyes: Yes: Conjunctiva Clear Neck: Yes: Supple Cardiovascular: Yes: Regular Rate and Rhythm Respiratory: Yes: Regular, CTA Bilaterally Gastrointestinal: Yes: Normal Bowel Sounds, Soft, Tenderness (RUQ, epigastric) Musculoskeletal: Yes: WNL Extremities: Yes: WNL Edema: No Integumentary: Yes: WNL Neurological: Yes: Alert, Oriented Psychiatric: Yes: Alert, Oriented Labs: CBC, BMP 07/02/18 07:58 07/02/18 07:58 <Adry Givens - Last Filed: 07/02/18 19:25> Vital Signs: Vital Signs Temperature 97.8 F 07/05/18 05:00 Pulse Rate 91 H 07/05/18 10:00 Respiratory Rate 18 07/05/18 10:00 Blood Pressure 122/67 07/05/18 10:00 O2 Sat by Pulse Oximetry (%) 98 07/05/18 01:00 Labs: CBC, BMP 07/05/18 06:30 07/05/18 06:30 <Deangelo Escalera - Last Filed: 07/05/18 21:22> Imaging - Results Chest X-ray: Report Reviewed Ultrasound: Report Reviewed <Adry Givens - Last Filed: 07/02/18 19:25> Problem List - Problems (1) RUQ pain Code(s): R10.11 - RIGHT UPPER QUADRANT PAIN <Adry Givens - Last Filed: 07/02/18 19:25> Assessment/Plan -admit to med-surg floor -GI consult -zofran IVPB PRN for nausea -clear liquid diet, advance as tolerated -NS at 50cc/hr for hydration -HIDA scan with ejection fraction pending -tylenol IVPB and ketorolac IVP PRN for pain management -dvt ppx -OOB to chair <Adry Givens - Last Filed: 07/02/18 19:25> I HAVE EXAMINED THE PATIENT AND I AGREE WITH THE ABOVE NOTE <Deangelo Escalera - Last Filed: 07/05/18 21:22>
[2018-07-02] MEDS: KETOROLAC TROMETHAMINE 30 MG/1 ML VIAL IVPUSH PRN (21:25)
[2018-07-03] MEDS: KETOROLAC TROMETHAMINE 30 MG/1 ML VIAL IVPUSH PRN ×3 (04:43→21:44)
[2018-07-03 08:00] LABS: HEMATOCRIT 37.2 % (32.4-45.2); HEMOGLOBIN 12.9 GM/dL (10.7-15.3); MCH 30.3 pg (25.7-33.7); MCHC 34.6 g/dl (32.0-36.0); MEAN CELL VOLUME 87.7 fl (80-96); MEAN PLT VOLUME 7.9 fl (7.5-11.1); PLATELET COUNT 281 K/MM3 (134-434); RBC 4.24 M/mm3 (3.60-5.2); RDW 12.8 % (11.6-15.6); WHITE BLOOD COUNT 6.8 K/mm3 (4.0-10.0)
--- NOTE | 2018-07-03 08:01 | CON.GI ---
Consult Consult Specialty:: Gastroenterology Referred by:: Adry Givens NP Reason for Consultation:: RUQ pain with nausea - History of Present Illness Chief Complaint: RUQ pain with nausea History of Present Illness: Patient is a 22 y/o female with no significant medical history that presented to ER with complaints of RUQ pain with nausea that awakened her from her sleep. Pain is described as sharp and non-radiating, denies fever. LFTs are normal. Abdominal US show hepatomegaly with fatty infiltration versus hepatocellular disease with a suggestion of poorly visualized small sludge posteriorly. This morning on exam continue to have RUQ pain with nausea, continue to be afebrile. - History Source History Provided By: Patient Limitations to Obtaining History: No Limitations - Alcohol/Substance Use Hx Alcohol Use: No - Smoking History Smoking history: Never smoked Aproximately how many cigarettes per day: 0 - Social History ADL: Independent History of Recent Travel: No Home Medications - Allergies Allergies/Adverse Reactions: Allergies Allergy/AdvReac Type Severity Reaction Status Date / Time No Known Allergies Allergy Verified 07/02/18 07:07 - Home Medications Home Medications: Ambulatory Orders NK [No Known Home Medication] 07/02/18 Review of Systems - Review of Systems Constitutional: reports: No Symptoms Eyes: reports: No Symptoms HENT: reports: No Symptoms Neck: reports: No Symptoms Cardiovascular: reports: No Symptoms Respiratory: reports: No Symptoms Gastrointestinal: reports: Abdominal Pain (RUQ), Nausea Genitourinary: reports: No Symptoms Breasts: reports: No Symptoms Reported Musculoskeletal: reports: No Symptoms Integumentary: reports: No Symptoms Neurological: reports: No Symptoms Endocrine: reports: No Symptoms Hematology/Lymphatic: reports: No Symptoms Psychiatric: reports: No Symptoms Physical Exam-GI Vital Signs: Vital Signs Temperature 98.0 F 07/03/18 05:34 Pulse Rate 90 07/03/18 05:34 Respiratory Rate 20 07/03/18 05:34 Blood Pressure 102/64 07/03/18 05:34 O2 Sat by Pulse Oximetry (%) 100 07/02/18 19:40 Constitutional: Yes: Well Nourished, No Distress, Calm Eyes: Yes: Conjunctiva Clear Cardiovascular: Yes: Regular Rate and Rhythm Respiratory: Yes: Regular, CTA Bilaterally Gastrointestinal Inspection: Yes: WNL ...Auscultate: Yes: Normoactive Bowel Sounds ...Palpate: Yes: Soft, Tenderness (RUQ). No: Firm/Rigid, Hepatomegaly, Mass, Pulsatile Mass, Splenomegaly, Tenderness, Epigastium Neurological: Yes: Alert, Oriented Labs: CBC, BMP 07/02/18 07:58 Hepatic Panel Total Bilirubin 0.3 mg/dL (0.2-1) 07/03/18 06:30 AST 24 U/L (15-37) 07/03/18 06:30 ALT 40 U/L (13-61) 07/03/18 06:30 Alkaline Phosphatase 67 U/L (45-117) 07/03/18 06:30 Albumin 3.0 g/dl (3.4-5.0) L 07/03/18 06:30 Problem List - Problems (1) RUQ pain Assessment/Plan: RUQ pain, R/O chronic cholecystitis vs gallblader dyskinesia HIDA scan negative -IVF for hydration -clear liquid diet as tolerated Unasyn 1.5 grams evrey 6 hours Actigall 300mg bid advance diet in am Code(s): R10.11 - RIGHT UPPER QUADRANT PAIN
[2018-07-03 08:23] LABS: ALK PHOS 67 U/L (45-117); ANION GAP 4 MMOL/L (8-16); BILIRUBIN,TOTAL 0.3 mg/dL (0.2-1); BLOOD UREA NITROGEN 12 mg/dL (7-18); CALCIUM 8.9 mg/dL (8.5-10.1); CHLORIDE 108 mmol/L (98-107); CO2 27 mmol/L (21-32); CREATININE 0.6 mg/dL (0.55-1.3); GLUCOSE,RANDOM 94 mg/dL (74-106); POTASSIUM 4.2 mmol/L (3.5-5.1); SGOT/AST 24 U/L (15-37); SGPT/ALT 40 U/L (13-61); SODIUM 140 mmol/L (136-145); TOT PROT 6.4 g/dl (6.4-8.2)
[2018-07-03] MEDS ORDERED: morphine SULFATE 4 MG/ML VIAL IVPUSH ONE (11:44)
--- NOTE | 2018-07-03 15:06 | PN ---
Progress Note, Physician Chief Complaint: RUQ pain with nausea History of Present Illness: Previous events and notes reviewed awake and alert NAD denies complaints of nausea, states having RUQ pain with movement HIDA scan with ejection fraction performed - Current Medication List Current Medications: Active Medications Acetaminophen (Ofirmev Injection -) 1,000 mg IVPB Q6H PRN PRN Reason: PAIN LEVEL 7 - 10 Sodium Chloride (Normal Saline -) 1,000 mls @ 50 mls/hr IV ASDIR ISAÍAS Stop: 07/03/18 19:00 Last Admin: 07/02/18 19:51 Dose: 50 mls/hr Ketorolac Tromethamine (Toradol Injection -) 30 mg IVPUSH Q6H PRN PRN Reason: PAIN LEVEL 4 - 6 Stop: 07/07/18 19:20 Last Admin: 07/03/18 04:43 Dose: 30 mg Morphine Sulfate (Morphine Sulfate) 4 mg IVPUSH ONCE ONE Stop: 07/03/18 11:45 Last Admin: 07/03/18 11:46 Dose: 4 mg Ondansetron HCl (Zofran Injection) 4 mg IVPUSH Q6H PRN PRN Reason: NAUSEA - Objective Vital Signs: Vital Signs Temperature 98.0 F 07/03/18 05:34 Pulse Rate 90 07/03/18 05:34 Respiratory Rate 20 07/03/18 05:34 Blood Pressure 102/64 07/03/18 05:34 O2 Sat by Pulse Oximetry (%) 100 07/02/18 19:40 Constitutional: Yes: Well Nourished, No Distress, Calm Eyes: Yes: Conjunctiva Clear Neck: Yes: Supple Cardiovascular: Yes: Regular Rate and Rhythm Respiratory: Yes: Regular, CTA Bilaterally Gastrointestinal: Yes: Normal Bowel Sounds, Soft, Tenderness (RUQ) Musculoskeletal: Yes: WNL Extremities: Yes: WNL Edema: No Integumentary: Yes: WNL Neurological: Yes: Alert, Oriented Psychiatric: Yes: Alert, Oriented Labs: CBC, BMP 07/03/18 06:00 07/03/18 06:30 - ....Imaging Other: Pending (HIDA scan with ejection fraction) <Adry Givens - Last Filed: 07/03/18 15:00> - Current Medication List Current Medications: Active Medications Acetaminophen (Ofirmev Injection -) 1,000 mg IVPB Q6H PRN PRN Reason: PAIN LEVEL 7 - 10 Sodium Chloride (Normal Saline -) 1,000 mls @ 50 mls/hr IV ASDIR ISAÍAS Stop: 07/03/18 19:00 Last Admin: 07/02/18 19:51 Dose: 50 mls/hr Ketorolac Tromethamine (Toradol Injection -) 30 mg IVPUSH Q6H PRN PRN Reason: PAIN LEVEL 4 - 6 Stop: 07/07/18 19:20 Last Admin: 07/03/18 15:30 Dose: 30 mg Morphine Sulfate (Morphine Sulfate) 4 mg IVPUSH ONCE ONE Stop: 07/03/18 11:45 Last Admin: 07/03/18 11:46 Dose: 4 mg Ondansetron HCl (Zofran Injection) 4 mg IVPUSH Q6H PRN PRN Reason: NAUSEA - Objective Vital Signs: Vital Signs Temperature 98.0 F 07/03/18 05:34 Pulse Rate 90 07/03/18 05:34 Respiratory Rate 20 07/03/18 05:34 Blood Pressure 102/64 07/03/18 05:34 O2 Sat by Pulse Oximetry (%) 100 07/02/18 19:40 Labs: CBC, BMP 07/03/18 06:00 07/03/18 06:30 <Deangelo Escalera - Last Filed: 07/03/18 16:55> Problem List - Problems (1) RUQ pain Code(s): R10.11 - RIGHT UPPER QUADRANT PAIN <Adry Givens - Last Filed: 07/03/18 15:00> Assessment/Plan -GI on board -HIDA scan w/ ejection fraction performed, results pending -zofran IVPB PRN for nausea -clear liquid diet, advance as tolerated -NS at 50cc/hr for hydration -tylenol IVPB and ketorolac IVP PRN for pain management -dvt ppx -OOB to chair <Adry Givens - Last Filed: 07/03/18 15:00> PATIENT SEEN AND EXAMINED AND I AGREE WITH THE ABOVE NOTE <Deangelo Escalera - Last Filed: 07/03/18 16:55>
[2018-07-03] MEDS ORDERED: PT OWN MED DRAWER 7, Y5N ONE (21:08)
[2018-07-03] MEDS ORDERED: AMPICILLIN NA/SULBACTAM NA 1.5 GM VIAL ONE (21:13)
[2018-07-03] MEDS ORDERED: SODIUM CHLORIDE 100 ML IVPB ONE (21:13)
[2018-07-03] MEDS: AMPICILLIN NA/SULBACTAM NA 1.5 GM in SODIUM CHLORIDE 100 ML IVPB SCH (21:44)
[2018-07-03] MEDS: PANTOPRAZOLE SODIUM 40 MG VIAL IVPUSH SCH (21:44)
[2018-07-03] MEDS: URSODIOL 300 MG CAPSULE PO SCH (21:44)
[2018-07-03] MEDS ORDERED: PANTOPRAZOLE SODIUM 40 MG in SODIUM CHLORIDE 100 ML IVPB SCH (22:00)
[2018-07-04] MEDS ORDERED: AMPICILLIN NA/SULBACTAM NA 1.5 GM VIAL ONE ×3 (02:43→15:05)
[2018-07-04] MEDS ORDERED: SODIUM CHLORIDE 100 ML IVPB ONE ×2 (02:44→09:26)
[2018-07-04] MEDS: AMPICILLIN NA/SULBACTAM NA 1.5 GM in SODIUM CHLORIDE 100 ML IVPB SCH ×4 (03:21→21:41)
[2018-07-04 06:46] LABS: HEMATOCRIT 37.5 % (32.4-45.2); HEMOGLOBIN 12.9 GM/dL (10.7-15.3); MCH 30.2 pg (25.7-33.7); MCHC 34.4 g/dl (32.0-36.0); MEAN CELL VOLUME 87.8 fl (80-96); MEAN PLT VOLUME 7.7 fl (7.5-11.1); PLATELET COUNT 265 K/MM3 (134-434); RBC 4.27 M/mm3 (3.60-5.2); RDW 13.2 % (11.6-15.6); WHITE BLOOD COUNT 7.6 K/mm3 (4.0-10.0)
[2018-07-04 08:34] LABS: ALBUMIN 3.2 g/dl (3.4-5.0); ALK PHOS 63 U/L (45-117); ANION GAP 8 MMOL/L (8-16); BILIRUBIN,TOTAL 0.5 mg/dL (0.2-1); BLOOD UREA NITROGEN 11 mg/dL (7-18); CALCIUM 8.5 mg/dL (8.5-10.1); CHLORIDE 108 mmol/L (98-107); CO2 25 mmol/L (21-32); CREATININE 0.6 mg/dL (0.55-1.3); GLUCOSE,RANDOM 86 mg/dL (74-106); POTASSIUM 4.3 mmol/L (3.5-5.1); SGOT/AST 30 U/L (15-37); SGPT/ALT 51 U/L (13-61); SODIUM 141 mmol/L (136-145); TOT PROT 6.3 g/dl (6.4-8.2)
--- NOTE | 2018-07-04 08:35 | PN ---
GI Progress Note Subjective: Patient examined lying in bed. Patient states pain is getting better. Denies nausea or vomiting. HIDA scan negative. - Objective Vital Signs: Vital Signs Temperature 98.1 F 07/04/18 06:48 Pulse Rate 81 07/04/18 06:48 Respiratory Rate 18 07/04/18 06:48 Blood Pressure 105/53 L 07/04/18 06:48 O2 Sat by Pulse Oximetry (%) 100 07/03/18 21:00 Constitutional: Well Nourished, No Distress, Calm Eyes: Yes: Conjunctiva Clear Neck: Yes: Supple Cardiovascular: Yes: Regular Rate and Rhythm Respiratory: Yes: Regular, CTA Bilaterally Gastrointestinal Inspection: Yes: WNL ...Auscultate: Yes: Normoactive Bowel Sounds ...Palpate: Yes: Soft, Tenderness (minor tenderness RUQ) Neurological: Yes: Alert Labs: CBC, BMP 07/04/18 06:20 Problem List - Problems (1) RUQ pain Code(s): R10.11 - RIGHT UPPER QUADRANT PAIN
[2018-07-04] MEDS: PANTOPRAZOLE SODIUM 40 MG VIAL IVPUSH SCH ×2 (09:38→21:43)
[2018-07-04] MEDS: URSODIOL 300 MG CAPSULE PO SCH ×2 (09:38→21:42)
--- NOTE | 2018-07-04 12:53 | PN ---
Progress Note, Physician Chief Complaint: RUQ pain with nausea History of Present Illness: Previous events and notes reviewed awake and alert NAD denies complaints of nausea, states having RUQ pain with movement HIDA scan neg - Current Medication List Current Medications: Active Medications Acetaminophen (Ofirmev Injection -) 1,000 mg IVPB Q6H PRN PRN Reason: PAIN LEVEL 7 - 10 Ampicillin Sodium/Sulbactam (Sodium 1.5 gm/ Sodium Chloride) 100 mls @ 200 mls/ hr IVPB Q6H-IV [facility] Last Admin: 07/04/18 09:38 Dose: 200 mls/hr Ketorolac Tromethamine (Toradol Injection -) 30 mg IVPUSH Q6H PRN PRN Reason: PAIN LEVEL 4 - 6 Stop: 07/07/18 19:20 Last Admin: 07/03/18 21:44 Dose: 30 mg Ondansetron HCl (Zofran Injection) 4 mg IVPUSH Q6H PRN PRN Reason: NAUSEA Pantoprazole Sodium (Protonix Iv) 40 mg IVPUSH BID [facility] Last Admin: 07/04/18 09:38 Dose: 40 mg Ursodiol (Actigal -) 300 mg PO BID [facility] Last Admin: 07/04/18 09:38 Dose: 300 mg - Objective Vital Signs: Vital Signs Temperature 97.8 F 07/04/18 09:20 Pulse Rate 88 07/04/18 09:20 Respiratory Rate 18 07/04/18 09:20 Blood Pressure 122/69 07/04/18 09:20 O2 Sat by Pulse Oximetry (%) 100 07/03/18 21:00 Constitutional: Yes: Well Nourished, No Distress, Calm Eyes: Yes: Conjunctiva Clear Neck: Yes: Supple Cardiovascular: Yes: Regular Rate and Rhythm Respiratory: Yes: Regular, CTA Bilaterally Gastrointestinal: Yes: Normal Bowel Sounds, Soft Musculoskeletal: Yes: WNL Extremities: Yes: WNL Edema: No Integumentary: Yes: WNL Neurological: Yes: Alert, Oriented Psychiatric: Yes: Alert, Oriented Labs: CBC, BMP 07/04/18 06:20 07/04/18 06:20 <Adry Givens - Last Filed: 07/04/18 12:51> - Objective Vital Signs: Vital Signs Temperature 97.8 F 07/05/18 05:00 Pulse Rate 91 H 07/05/18 10:00 Respiratory Rate 18 07/05/18 10:00 Blood Pressure 122/67 07/05/18 10:00 O2 Sat by Pulse Oximetry (%) 98 07/05/18 01:00 Labs: CBC, BMP 07/05/18 06:30 07/05/18 06:30 <Deangelo Escalera - Last Filed: 07/05/18 21:21> Problem List - Problems (1) RUQ pain Code(s): R10.11 - RIGHT UPPER QUADRANT PAIN <Adry Givens - Last Filed: 07/04/18 12:51> Assessment/Plan -GI on board -HIDA scan w/ ejection fraction neg -started on IV ABT -started on Actigall -zofran IVPB PRN for nausea -started on low fiber diet -NS at 50cc/hr for hydration -tylenol IVPB and ketorolac IVP PRN for pain management -dvt ppx -OOB to chair <Adry Givens - Last Filed: 07/04/18 12:51> I HAVE EXAMINED THE PATIENT AND I AGREE WITH THE ABOVE NOTE <Deangelo Escalera - Last Filed: 07/05/18 21:21>
[2018-07-05] MEDS: AMPICILLIN NA/SULBACTAM NA 1.5 GM in SODIUM CHLORIDE 100 ML IVPB SCH (02:43)
[2018-07-05 05:19] VITALS: TEMP 97.8
[2018-07-05 07:46] LABS: HEMOGLOBIN 12.5 GM/dL (10.7-15.3); MCH 30.1 pg (25.7-33.7); MCHC 34.8 g/dl (32.0-36.0); MEAN CELL VOLUME 86.4 fl (80-96); PLATELET COUNT 253 K/MM3 (134-434); RBC 4.16 M/mm3 (3.60-5.2); RDW 12.7 % (11.6-15.6); WHITE BLOOD COUNT 8.7 K/mm3 (4.0-10.0)
[2018-07-05 08:25] LABS: ALBUMIN 3.2 g/dl (3.4-5.0); ALK PHOS 59 U/L (45-117); ANION GAP 10 MMOL/L (8-16); BILIRUBIN,TOTAL 0.4 mg/dL (0.2-1); BLOOD UREA NITROGEN 10 mg/dL (7-18); CHLORIDE 107 mmol/L (98-107); CO2 25 mmol/L (21-32); CREATININE 0.6 mg/dL (0.55-1.3); GLUCOSE,RANDOM 85 mg/dL (74-106); SGOT/AST 20 U/L (15-37); SGPT/ALT 40 U/L (13-61); SODIUM 141 mmol/L (136-145); TOT PROT 6.3 g/dl (6.4-8.2)
--- NOTE | 2018-07-05 08:54 | PN ---
GI Progress Note Subjective: Patient states feeling better, denies abdominal pain, nausea, vomiting. - Objective Vital Signs: Vital Signs Temperature 97.8 F 07/05/18 05:00 Pulse Rate 86 07/05/18 05:00 Respiratory Rate 20 07/05/18 01:00 Blood Pressure 105/59 L 07/05/18 05:00 O2 Sat by Pulse Oximetry (%) 98 07/05/18 01:00 Constitutional: Well Nourished, No Distress, Calm Eyes: Yes: Conjunctiva Clear Neck: Yes: Supple Cardiovascular: Yes: Regular Rate and Rhythm Respiratory: Yes: Regular, CTA Bilaterally Gastrointestinal Inspection: Yes: WNL ...Auscultate: Yes: Normoactive Bowel Sounds ...Palpate: Yes: Soft Neurological: Yes: Alert, Oriented Labs: CBC, BMP 07/05/18 06:30 07/05/18 06:30 Problem List - Problems (1) RUQ pain Assessment/Plan: >Discontinue IV Unasyn, will start on Levaquin 500mg tab PO tolerating food intake instructed patient to follow up with GI as outpatient Code(s): R10.11 - RIGHT UPPER QUADRANT PAIN
[2018-07-05] MEDS: URSODIOL 300 MG CAPSULE PO SCH (09:46)
[2018-07-05] MEDS: PANTOPRAZOLE SODIUM 40 MG VIAL IVPUSH SCH (09:46)
[2018-07-05] MEDS ORDERED: ONDANSETRON 4 MG TABLET PO PRN (11:15)
--- NOTE | 2018-07-05 11:30 | DS ---
Physical Examination Vital Signs: Vital Signs Temperature 97.8 F 07/05/18 05:00 Pulse Rate 86 07/05/18 05:00 Respiratory Rate 20 07/05/18 01:00 Blood Pressure 105/59 L 07/05/18 05:00 O2 Sat by Pulse Oximetry (%) 98 07/05/18 01:00 Findings/Remarks: Patient is a 22 y/o female that presented to ED for complaints of RUQ pain with nausea. Abdominal US showed biliary sludge present. admitted to obs for further workup. Followed by GI while in patient. HIDA scan with ejection fraction performed and neg. Started on Actigal and Unasyn IVPB. Antibiotics switched to PO this morning, tolerating well. Patient states abdominal pain has subsided and denies complaints of nausea. Has been able to tolerate regular diet. Constitutional: Yes: Well Nourished, No Distress, Calm Eyes: Yes: Conjunctiva Clear Neck: Yes: Supple Cardiovascular: Yes: Regular Rate and Rhythm Respiratory: Yes: Regular Gastrointestinal: Yes: Normal Bowel Sounds, Soft Musculoskeletal: Yes: WNL Extremities: Yes: WNL Edema: No Integumentary: Yes: WNL Neurological: Yes: Alert, Oriented Psychiatric: Yes: Alert, Oriented Labs: CBC, BMP 07/05/18 06:30 07/05/18 06:30 <Adry Givens - Last Filed: 07/05/18 11:31> Vital Signs: Vital Signs Temperature 97.8 F 07/05/18 05:00 Pulse Rate 91 H 07/05/18 10:00 Respiratory Rate 18 07/05/18 10:00 Blood Pressure 122/67 07/05/18 10:00 O2 Sat by Pulse Oximetry (%) 98 07/05/18 01:00 Labs: CBC, BMP 07/05/18 06:30 07/05/18 06:30 <Deangelo Escalera - Last Filed: 07/05/18 21:21> Discharge Summary Reason For Visit: BILIARY COLIC Current Active Problems Biliary colic (Acute) RUQ pain (Acute) Procedures: Principal: Abdominal US. HIDA scan with ejection fraction - Home Medications Comprehensive Discharge Medication List: Ambulatory Orders Ursodiol [Actigal -] 300 mg PO BID #28 capsule 07/05/18 levoFLOXacin [Levaquin -] 500 mg PO DAILY #6 tablet 07/05/18 metroNIDAZOLE [Flagyl -] 250 mg PO TID #42 tablet 07/05/18 <Adry Givens - Last Filed: 07/05/18 11:31> - Home Medications Comprehensive Discharge Medication List: Ambulatory Orders Ursodiol [Actigal -] 300 mg PO BID #28 capsule 07/05/18 levoFLOXacin [Levaquin -] 500 mg PO DAILY #6 tablet 07/05/18 metroNIDAZOLE [Flagyl -] 250 mg PO TID #42 tablet 07/05/18 <Deangelo Escalera - Last Filed: 07/05/18 21:21> Condition: Improved - Instructions Diet, Activity, Other Instructions: Patient instructed to follow up with pmd in 2 weeks Patient instructed to follow up with GI specialist in 3 weeks instructed if RUQ pain, vomiting return call PMD or go to ED cont with rx med as prescribed Referrals: Linda Nguyen [Primary Care Provider] - Yariel Paz MD [Staff Physician] - Disposition: HOME
[2018-07-05 11:35] VITALS: BP 122/67; PULSE 91
[2018-07-05 15:25] VITALS: BMI 45.8
[2018-07-06] MEDS ORDERED: PANTOPRAZOLE 40 MG TABLET (FP) PO SCH (10:00)
== END 2018-07-05 12:19 | disposition home or self-care (01) ==
LOC: JER 06:51 → JERBED 13:04 → J6S 20:59
PROVIDERS: ADMIT Family Medicine; ATTEND Family Medicine
PROC: 3E0333Z Introduction of Anti-inflammatory into Peripheral Vein, Percutaneous Approach (ICD-10-PCS; principal; 2018-07-02)
PROC: 3E033NZ Introduction of Analgesics, Hypnotics, Sedatives into Peripheral Vein, Percutaneous Approach (ICD-10-PCS; 2018-07-02)
PROC: 3E033GC Introduction of Other Therapeutic Substance into Peripheral Vein, Percutaneous Approach (ICD-10-PCS; 2018-07-02)
PROC: 3E0337Z Introduction of Electrolytic and Water Balance Substance into Peripheral Vein, Percutaneous Approach (ICD-10-PCS; 2018-07-02)
DX: R10.11 Right upper quadrant pain (principal)
CPT/HCPCS: 36415; 71046-TC-FY; 76705-TC; 78226-TC; 80053; 81003; 81015; 83690; 84703; 85025; 85027; 96361; 96374; 96375; 96376; 99284-25; A9537; G0378; J0131; J7030

== ENCOUNTER 2018-08-16 10:16 | Emergency (ER) | payer OTHER ==
[2018-08-16 10:26] VITALS: BMI 44.6
[2018-08-16] MEDS ORDERED: KETOROLAC TROMETHAMINE 30 MG/1 ML VIAL IVPUSH ONE (11:09)
--- NOTE | 2018-08-16 11:13 | PDOC ---
History of Present Illness - General Chief Complaint: Pain Stated Complaint: ABD PAIN Time Seen by Provider: 08/16/18 11:03 History Source: Patient - History of Present Illness Timing/Duration: reports: constant Past History - Past Medical History Allergies/Adverse Reactions: Allergies Allergy/AdvReac Type Severity Reaction Status Date / Time No Known Allergies Allergy Verified 08/16/18 10:22 Home Medications: Ambulatory Orders Ursodiol [Actigal -] 300 mg PO BID #28 capsule 07/05/18 levoFLOXacin [Levaquin -] 500 mg PO DAILY #6 tablet 07/05/18 metroNIDAZOLE [Flagyl -] 250 mg PO TID #42 tablet 07/05/18 COPD: No Other medical history: SPASTIC GALLBLADDER - Immunization History Immunization Up to Date: Yes - Suicide/Smoking/Psychosocial Hx Smoking Status: No Smoking History: Never smoked Number of Cigarettes Smoked Daily: 0 Hx Alcohol Use: No Drug/Substance Use Hx: No Abd/GI Specific PMHX - Complaint Specific PMHX Colitis: No Diverticulitis: No Gall Bladder Disease: No Irritable Bowel Synd (IBS): No Pancreatitis: No Review of Systems - Review of Systems Constitutional: No: Chills, Fever ABD/GI: Yes: Blood Streaked Bowels. No: Constipated, Diarrhea, Nausea, Vomiting : No: Dysuria, Discharge, Hematuria *Physical Exam - Vital Signs Last Vital Signs Temp Pulse Resp BP Pulse Ox 98.3 F 89 17 127/59 L 99 08/16/18 10:22 08/16/18 10:22 08/16/18 10:22 08/16/18 10:22 08/16/18 10:22 - Physical Exam General Appearance: Yes: Appropriately Dressed, Mild Distress HEENT: positive: Normal Voice Neck: positive: Supple Respiratory/Chest: positive: Lungs Clear, Normal Breath Sounds. negative: Respiratory Distress Cardiovascular: positive: Regular Rate, S1, S2 Gastrointestinal/Abdominal: positive: Normal Bowel Sounds, Tender, Soft, Other ( neg murpheys). negative: Distended, Guarding, Rebound Musculoskeletal: negative: CVA Tenderness Integumentary: positive: Dry, Warm Neurologic: positive: Fully Oriented, Alert, Normal Mood/Affect Moderate Sedation - Procedure Monitoring Vital Signs: Procedure Monitoring Vital Signs Temperature 98.3 F 08/16/18 10:22 Pulse Rate 89 08/16/18 10:22 Respiratory Rate 17 03/01/19 10:22 Blood Pressure 127/59 L 08/16/18 10:22 O2 Sat by Pulse Oximetry (%) 99 08/16/18 10:22 ED Treatment Course - LABORATORY CBC & Chemistry Diagram: 08/16/18 03:43 08/16/18 03:43 - RADIOLOGY Radiology Studies Ordered: Category Date Time Status ABDOMEN US -LIMITED [US] Stat Ultrasound 08/16/18 11:09 Ordered Medical Decision Making - Medical Decision Making 08/16/18 11:10 23-year-old female here with recurrent RUQ painn since yesterday. Prior to June of this year, patient had no known medical history when she presented to [facility] ER with RUQ pain. Patient had ultrasound done which showed biliary sludge. Was admitted and had HIDA scan done which was negative. Was sent home with flagcory and garland and given GI follow-up with Dr. Paz whom patient has not yet seen. States she was asymptomatic until yesterday when pain recurred. Also reporting bloody stools since yesterday for the first time. No melena, nausea, vomiting, fever or chills See exam Recurrent RUQ pain s/p admission for same 07/06 w/ biliary sludge on US w/ neg HIDA and labs Pending GI f/u as out=pt Stephanie uncomfortable but stable w/ sig ttp to RUQ -pain control -labs -US -dispo pending 08/16/18 11:13 08/16/18 16:27 Labs unremarkable. US read as mild hepatomegaly w/ no gallstones or other pathology. Pt improved w/ toradol. Feels well enough to be discharged to f/u with Dr Paz of GI (referral given on last visit). Reasons to return d/w pt *DC/Admit/Observation/Transfer Diagnosis at time of Disposition: RUQ pain - Discharge Dispostion Disposition: HOME Condition at time of disposition: Improved - Referrals Referrals: Yariel Paz MD [Staff Physician] - - Patient Instructions Additional Instructions: Your labs and ultrasound were unremarkable today. Take Tylenol as needed for pain and call Dr. Paz for GI for follow-up Please return for persistent/worsening pain - Post Discharge Activity Forms/Work/School Notes: Back to Work
[2018-08-16 11:54] LABS: BASO % 0.8 % (0-2.0); EOS % 0.6 % (0-4.5); HEMATOCRIT 38.3 % (32.4-45.2); HEMOGLOBIN 13.3 GM/dL (10.7-15.3); LYMPH % 28.8 % (8-40); MCH 30.4 pg (25.7-33.7); MCHC 34.8 g/dl (32.0-36.0); MEAN CELL VOLUME 87.4 fl (80-96); MEAN PLT VOLUME 7.9 fl (7.5-11.1); MONO % 5.4 % (3.8-10.2); NEUT % 64.4 % (42.8-82.8); PLATELET COUNT 315 K/MM3 (134-434); RBC 4.38 M/mm3 (3.60-5.2); RDW 13.4 % (11.6-15.6); WHITE BLOOD COUNT 9.4 K/mm3 (4.0-10.0)
[2018-08-16] MEDS ORDERED: KETOROLAC TROMETHAMINE 30 MG/1 ML VIAL ONE (11:56)
[2018-08-16 12:11] LABS: URINE APPEARANCE CLEAR; URINE BILIRUBIN NEGATIVE (<2.0 mg/dL); URINE COLOR LTYELLOW; URINE GLUCOSE (UA) NEGATIVE (NEGATIVE); URINE KETONE NEGATIVE (NEGATIVE); URINE LEUK ESTERASE NEGATIVE (NEGATIVE); URINE NITRITE NEGATIVE (NEGATIVE); URINE PROTEIN NEGATIVE (NEGATIVE); URINE UROBILINOGEN NEGATIVE mg/dL (0.2-1.0)
[2018-08-16 12:20] LABS: ALBUMIN 3.6 g/dl (3.4-5.0); ALK PHOS 66 U/L (45-117); ANION GAP 6 MMOL/L (8-16); BILIRUBIN,TOTAL 0.4 mg/dL (0.2-1); BLOOD UREA NITROGEN 9 mg/dL (7-18); CALCIUM 9.1 mg/dL (8.5-10.1); CHLORIDE 106 mmol/L (98-107); CO2 25 mmol/L (21-32); CREATININE 0.6 mg/dL (0.55-1.3); GLUCOSE,RANDOM 89 mg/dL (74-106); LIPASE 120 U/L (73-393); POTASSIUM 4.3 mmol/L (3.5-5.1); SGOT/AST 19 U/L (15-37); SGPT/ALT 39 U/L (13-61); SODIUM 137 mmol/L (136-145); TOT PROT 7.3 g/dl (6.4-8.2)
[2018-08-16] MEDS ORDERED: ACETAMINOPHEN 325 MG TABLET (FP) PO ONE (16:28)
[2018-08-16] MEDS ORDERED: ACETAMINOPHEN 325 MG TABLET (FP) ONE (16:58)
[2018-08-16 17:03] VITALS: BP 132/74; PULSE 78; TEMP 98
== END 2018-08-16 17:04 | disposition home or self-care (01) ==
LOC: JER 10:16
PROC: 3E0333Z Introduction of Anti-inflammatory into Peripheral Vein, Percutaneous Approach (ICD-10-PCS; principal; 2018-08-16)
DX: R10.11 Right upper quadrant pain (principal)
CPT/HCPCS: 36415; 76705-TC; 80053; 81003; 83690; 84703; 85025; 96374; 99283-25

== ENCOUNTER 2018-11-18 13:47 | Emergency (ER) | payer OTHER | END 2018-11-18 15:12 | disposition home or self-care (01) | LOC: JERFT 13:47 ==

== ENCOUNTER 2018-12-25 23:12 | Emergency (ER) | payer OTHER ==
[2018-12-25 23:22] VITALS: TEMP 98.5; BMI 45.7
--- NOTE | 2018-12-25 23:49 | PDOC ---
*Physical Exam - Vital Signs Last Vital Signs Temp Pulse Resp BP Pulse Ox 98.5 F 100 H 16 126/75 100 12/25/18 23:19 12/25/18 23:19 12/25/18 23:19 12/25/18 23:19 12/25/18 23:19 ED Treatment Course - LABORATORY CBC & Chemistry Diagram: 12/26/18 00:10 12/26/18 00:10 Medical Decision Making - Medical Decision Making 12/25/18 23:49 Patient seen by the advanced practice provider under my direct supervision. Ancillary testing reviewed as necessary. I agree with plan as outlined by the advanced practice provider. *DC/Admit/Observation/Transfer Diagnosis at time of Disposition: RUQ pain - Referrals - Patient Instructions - Post Discharge Activity
[2018-12-25] MEDS ORDERED: ACETAMINOPHEN 1000 MG/100 ML VIAL (NON FORMULARY) IVPB ONE (23:50)
--- NOTE | 2018-12-25 23:50 | PDOC ---
History of Present Illness - General Chief Complaint: Pain, Acute Stated Complaint: PAIN Time Seen by Provider: 12/25/18 23:23 History Source: Patient Exam Limitations: No Limitations Past History - Past Medical History Allergies/Adverse Reactions: Allergies Allergy/AdvReac Type Severity Reaction Status Date / Time No Known Allergies Allergy Verified 12/25/18 23:22 Home Medications: Ambulatory Orders Methocarbamol [Robaxin -] 500 mg PO BID PRN #10 tablet 11/18/18 Naproxen 500 mg PO BID PRN #20 tablet 11/18/18 Sulfamethoxazole/Trimethoprim [Bactrim Ds -] 1 tab PO BID 5 Days #10 tablet 09/03 COPD: No GI Disorders: Yes (gallbladder sludge) - Immunization History Immunization Up to Date: Yes - Suicide/Smoking/Psychosocial Hx Smoking Status: No Smoking History: Unknown if ever smoked Have you smoked in the past 12 months: No Number of Cigarettes Smoked Daily: 0 Information on smoking cessation initiated: No Hx Alcohol Use: No Drug/Substance Use Hx: No Abd/GI Specific PMHX - Complaint Specific PMHX Colitis: No Diverticulitis: No Gall Bladder Disease: No Irritable Bowel Synd (IBS): No Pancreatitis: No *Physical Exam - Vital Signs Last Vital Signs Temp Pulse Resp BP Pulse Ox 98.5 F 100 H 16 126/75 100 12/25/18 23:19 12/25/18 23:19 12/25/18 23:19 12/25/18 23:19 12/25/18 23:19 - Physical Exam General Appearance: No: Apparent Distress Respiratory/Chest: positive: Lungs Clear, Normal Breath Sounds. negative: Respiratory Distress Cardiovascular: positive: Regular Rhythm, Regular Rate, S1, S2. negative: Murmur Gastrointestinal/Abdominal: positive: Normal Bowel Sounds, Tender (along RUQ), Soft. negative: Distended, Guarding, Rebound, Hernia, Mass Musculoskeletal: negative: CVA Tenderness Integumentary: positive: Normal Color Neurologic: positive: Alert, Normal Mood/Affect ED Treatment Course - LABORATORY CBC & Chemistry Diagram: 12/26/18 00:10 12/26/18 00:10 - RADIOLOGY Radiology Studies Ordered: Category Date Time Status ABDOMEN US -LIMITED [US] Stat Ultrasound 12/25/18 23:39 Ordered Medical Decision Making - Medical Decision Making 23 y/o F with no sig pmh presents with RUQ pain from today; pain is worse with movement of body. Pain is not associated with food intake. Has not tried anything for pain. Patient has been having this pain intermittently since Jun 2018 and has been to hospital twice for similar complaint (in 06/2018 and 08/2018) ; patient had negative HIDA scan 06/2018 and negative RUQ sono 06/2018 and 2018. Patient was told to f/u with GI (referred to Dr. Paz) but states she never got time for follow-up. Also states she does not have PCP. Also mentions having loose stools since Jun 2018. Denies fever, sob, cp, n/v, urinary complaints. Denies prior abdominal surgeries. Denies smoking, alcohol or drug use. Consider cholelithiasis vs cholecystitis Plan: Labs, RUQ sono, IV Tylenol 12/25/18 23:49 Labs unremarkable RUQ sono shows no acute findings, other than possibly fatty liver Pain improved after IV Tylenol Patient states she will f/u with GI this time Also given PCP card for f/u 12/26/18 01:06 *DC/Admit/Observation/Transfer Diagnosis at time of Disposition: RUQ pain - Discharge Dispostion Disposition: HOME Condition at time of disposition: Stable Decision to Admit order: No - Referrals Referrals: Yariel Paz MD [Staff Physician] - 2 Days Rogerio Tejeda MD [Staff Physician] - 2 Days - Patient Instructions Printed Discharge Instructions: DI for Abdominal Pain-Adult Additional Instructions: Thank you for choosing [facility]. It was a pleasure taking care of you. Your labs and ultrasound were unremarkable There was mention of fatty liver on your ultrasound; recommend decrease intake of fat in diet Please follow-up with GI, Dr. Paz You were also referred to a primary care center - please call to make appointment Return to the Emergency Department if your symptoms worsen or persist or have other concerning symptoms. - Post Discharge Activity Forms/Work/School Notes: Back to Work
[2018-12-26] MEDS ORDERED: ACETAMINOPHEN INJECTION 100 ML IVPB ONE (00:17)
[2018-12-26 00:29] LABS: BASO % 0.7 % (0-2.0); EOS % 0.9 % (0-4.5); HEMATOCRIT 40.1 % (32.4-45.2); HEMOGLOBIN 13.4 GM/dL (10.7-15.3); LYMPH % 31.6 % (8-40); MCH 29.2 pg (25.7-33.7); MCHC 33.3 g/dl (32.0-36.0); MEAN CELL VOLUME 87.5 fl (80-96); MEAN PLT VOLUME 8.1 fl (7.5-11.1); MONO % 4.9 % (3.8-10.2); NEUT % 61.9 % (42.8-82.8); PLATELET COUNT 312 K/MM3 (134-434); RBC 4.58 M/mm3 (3.60-5.2); RDW 12.9 % (11.6-15.6); WHITE BLOOD COUNT 11.8 K/mm3 (4.0-10.0)
[2018-12-26 00:57] LABS: ALBUMIN 3.6 g/dl (3.4-5.0); BILIRUBIN,TOTAL 0.4 mg/dL (0.2-1); BLOOD UREA NITROGEN 10.2 mg/dL (7-18); CALCIUM 9.2 mg/dL (8.5-10.1); CREATININE 0.7 mg/dL (0.55-1.3); POTASSIUM 4.1 mmol/L (3.5-5.1); TOT PROT 7.3 g/dl (6.4-8.2)
[2018-12-26 01:45] VITALS: BP 129/80; PULSE 92
== END 2018-12-26 01:35 | disposition home or self-care (01) ==
LOC: JER 23:12
PROC: 3E033NZ Introduction of Analgesics, Hypnotics, Sedatives into Peripheral Vein, Percutaneous Approach (ICD-10-PCS; principal; 2018-12-25)
DX: R10.11 Right upper quadrant pain (principal)
CPT/HCPCS: 36415; 76705-TC; 80053; 83690; 84703; 85025; 99282-25; J0131

== ENCOUNTER 2019-03-14 01:35 | Emergency (ER) | payer OTHER ==
[2019-03-14 02:10] VITALS: BP 120/66; PULSE 80; TEMP 98.2; BMI 46.1
--- NOTE | 2019-03-14 02:40 | PDOC ---
History of Present Illness - General Chief Complaint: Injury Stated Complaint: INJURY Time Seen by Provider: 03/14/19 02:11 - History of Present Illness Initial Comments: 03/14/19 02:34 This is a 23 year old female with no significant PMH. She presents to the ER with complaints of right sided facial pain for the past 12 hours. 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 She endorses pain, blurry vision in her right eye, nausea, and headache. She had no LOC, did not fall down, and has no associated fever, chills, or vomiting. Past History - Travel Traveled outside of the country in the last 30 days: No Close contact w/someone who was outside of country & ill: No - Past Medical History Allergies/Adverse Reactions: Allergies Allergy/AdvReac Type Severity Reaction Status Date / Time No Known Allergies Allergy Verified 12/25/18 23:22 Home Medications: Ambulatory Orders Methocarbamol [Robaxin -] 500 mg PO BID PRN #10 tablet 11/18/18 Naproxen 500 mg PO BID PRN #20 tablet 11/18/18 Sulfamethoxazole/Trimethoprim [Bactrim Ds -] 1 tab PO BID 5 Days #10 tablet 09/03 COPD: No GI Disorders: Yes (gallbladder sludge) - Immunization History Immunization Up to Date: Yes - Psycho Social/Smoking Cessation Hx Smoking Status: No Smoking History: Never smoked Have you smoked in the past 12 months: No Number of Cigarettes Smoked Daily: 0 Hx Alcohol Use: No Drug/Substance Use Hx: No Review of Systems - Review of Systems Able to Perform ROS?: Yes Is the patient limited Burkin[place] proficient: No HEENTM: Yes: Blurred Vision. No: Symptoms Reported, See HPI, Eye Pain, Tearing , Recent change in vision, Double Vision, Cataracts, Ear Pain, Ocular Prothesis , Ear Discharge, Nose Pain, Nose Congestion, Tinnitus, Nose Bleeding, Hearing Loss, Throat Pain, Throat Swelling, Mouth Pain, Dental Problems, Difficulty Swallowing, Mouth Swelling, Other Respiratory: No: Symptoms reported, See HPI, Cough, Orthopnea, Shortness of Breath, SOB with Exertion, SOB at Rest, Stridor, Wheezing, Productive cough, Hemoptysis, Other Cardiac (ROS): No: Symptoms Reported, See HPI, Chest Pain, Edema, Irregular Heart Rate, Lightheadedness, Palpitations, Syncope, Chest Tightness, Other ABD/GI: No: Symptoms Reported, See HPI, Abdominal Distended, Abd. Pain w/ defecation, Blood Streaked Bowels, Constipated, Diarrhea, Difficulty Swallowing , Nausea, Poor Appetite, Poor Fluid Intake, Rectal Bleeding, Vomiting, Indigestion, Abdominal cramping, Tarry Stools, Other : No: Symptoms Reported, See HPI, Burning, Dysuria, Discharge, Frequency, Flank Pain, Hematuria, Incontinence, Pain, Urgency, Testicular Mass, Testicular Swelling, Lesions, Testicular Pain, Other Musculoskeletal: No: Symptoms Reported, See HPI, Back Pain, Gout, Joint Pain, Joint Swelling, Muscle Pain, Muscle Weakness, Neck Pain, Joint Stiffness, Other Integumentary: No: Symptoms Reported, See HPI, Bruising, Change in Color, Change in Hair/Nails, Dryness, Erythema, Flushing, Lesions, Lumps, Pallor, Pruritus, Rash, Sweating, Other Neurological: Yes: Headache, Dizziness. No: Symptoms reported, See HPI, Numbness, Paresthesia, Pre-Existing Deficit, Seizure, Tingling, Tremors, Weakness, Unsteady Gait, Ataxia, Other Psychiatric: No: Anxiety, Depression, Frequent Crying, Stressors, Sleep Pattern Change, Emotional Problems, Mood Swings, Change in Appetite, Other Endocrine: No: Symptoms Reported, See HPI, Excessive Sweating, Flushing, Intolerance to Cold, Intolerance to Heat, Increased Hunger, Increased Thirst, Increased Urine, Unexplained Weight Gain, Unexplained Weight Loss, Change in Weight, Other Hematologic/Lymphatic: No: Symptoms Reported, See HPI, Anemia, Blood Clots, Easy Bleeding, Easy Bruising, Bleeding Diathesis, Lymph Node Abnormalities, Swollen Glands, Other *Physical Exam - Vital Signs Last Vital Signs Temp Pulse Resp BP Pulse Ox 98.2 F 80 18 120/66 99 03/14/19 02:04 03/14/19 02:04 03/14/19 02:04 03/14/19 02:04 03/14/19 02:04 - Physical Exam Comments: 03/14/19 02:46 Neuro exam: TATYANA, EOM intact, peripheral visual stanford normal Mild tenderness to palpation in frontoparietal region, no swelling or erythema noted. Motor strength 5/5 B/L Sensations: intact CN II-XII: Intact General Appearance: Yes: Appropriately Dressed. No: Nourished, Apparent Distress, Disheveled, Mild Distress, Moderate Distress, Severe Distress, Alcohol on Breath, Intoxicated, Cachetic, Obese, Thin, Other HEENT: positive: TATYANA, Normal ENT Inspection, Normal Voice, Symmetrical, Pharynx Normal. negative: EOMI, TMs Normal, Pale Conjunctivae, Photophobia, Scleral Icterus (R), Scleral Icterus (L), Muffled/Hoarse voice, Pharyngeal Erythema, Tonsillar Exudate, Tonsillar Erythema, Nasal Congestion, Rhinorrhea, Sinus Tenderness, Orbits, Hearing Decreased, Hearing Grossly Normal, TM Bulging , TM Dull, TM Erythema, Lesions, Freire, Excessive drooling, Thrush, Other Neck: positive: Trachea midline. negative: Tender, Normal Thyroid, Rigid, Supple, Carotid bruit, Decreased range of motion, Stridor, Lymphadenopathy (R), Lymphadenopathy (L), Rigidity, Tender lateral, Tender midline, Thyromegaly, Other Respiratory/Chest: positive: Normal Breath Sounds. negative: Chest Tender, Lungs Clear, Respiratory Distress, Accessory Muscle Use, Labored Respiration, Rapid RR, Decreased Breath Sounds, Paradoxal Breathing, Crackles, Rales, Rhonchi , Stridor, Wheezing, Hyperresonant, Dullness, Plerual Rub, Other Cardiovascular: positive: Regular Rhythm, Regular Rate Female Pelvic Exam: negative: normal external exam, cervical os closed, normal adnexa, normal size ovaries, CMT, discharge, lesions, Bartholin mass, Scalene Gland, adnexal tenderness, uterus, Urethra, vaginal bleeding, other Gastrointestinal/Abdominal: positive: Soft. negative: Normal Bowel Sounds, Tender, Flat, Organomegaly, Pulsatile Mass, Increased Bowel Sounds, Decreased BS , Protuberent, Distended, Guarding, Rebound, Tenderness, Hernia, Mass, Hepatomegaly, Spleenomegaly, Other Neurologic: positive: bottom hoop driver II-XII NML intact, Fully Oriented, Alert, Normal Mood/ Affect, Normal Response, Motor Strength 5/5. negative: Abnormal Cranial NS, Respond to painful stimul, Responsive, EOM Palsy, Facial Droop, Numbness, Sensory Deficit, Finger to Nose, Confused, Disoriented, Depressed Affect, Babinski, Other Medical Decision Making - Medical Decision Making 03/14/19 02:46 - No focal deficits on exam, no visual changes, no swelling, no wound, injury occured 12 hours ago and patient has been stable since then so no imaging ordered - Tylenol for pain and Zofran for nausea - Will D/C Discharge - Discharge Information Problems reviewed: Yes Clinical Impression/Diagnosis: Headache Condition: Guarded Disposition: HOME - Admission No - Follow up/Referral - Patient Discharge Instructions Additional Instructions: You presented to the ER because of pain on the right side of your head. After a thorough examination of your head and nerves, we believe you do not have any acute injuries. We gave you some medicine for your pain and nausea, and you are now being discharged home. Please follow up with a primary care physician within 1 week. If you do not have one, you can make an appointment with Dr. Doherty at the [facility]. Please return to the ER if your pain, nausea, or dizziness do not subside, or if you develop vision changes, fainting, and/or vomiting. - Post Discharge Activity
[2019-03-14] MEDS ORDERED: ONDANSETRON 8 MG TABLET (FP) PO ONE ×2 (02:41→02:46)
[2019-03-14] MEDS ORDERED: ACETAMINOPHEN 325 MG TABLET (FP) PO ONE (02:42)
[2019-03-14] MEDS ORDERED: ACETAMINOPHEN 325 MG TABLET (FP) ONE (02:46)
--- NOTE | 2019-03-14 03:07 | PDOC ---
Attending Attestation - Resident Resident Name: NikitaAdalberto baron - ED Attending Attestation I have performed the following: I have examined & evaluated the patient, The case was reviewed & discussed with the resident, I agree w/resident's findings & plan, Exceptions are as noted - HPI HPI: 03/14/19 03:04 23F here c/o pain to head. Earlier this afternoon, patient was standing at her open refrigerator when a diamond blender that was stored on top was knocked over by her cat. It fell 2 feet and struck her in the head. No loc, amnesia, n/v, confusion. - Physicial Exam PE: 03/14/19 03:06 Agree with exam as documented by resident - Medical Decision Making 03/14/19 03:06 No wound requiring closure Low risk injury Imaging not indicated Analgesia dc
== END 2019-03-14 03:15 | disposition home or self-care (01) ==
LOC: JER 01:35
DX: R51 Headache (principal); W20.8XXA Other cause of strike by thrown, projected or falling object, initial encounter; Y93.89 Activity, other specified; Y92.030 Kitchen in apartment as the place of occurrence of the external cause; Y99.8 Other external cause status; Z87.19 Personal history of other diseases of the digestive system
CPT/HCPCS: 99282-25

== ENCOUNTER 2021-11-30 07:15 | Emergency (ER) | payer OTHER ==
[2021-11-30 07:28] VITALS: BP 129/82; PULSE 110; TEMP 98.4; BMI 40.2
[2021-11-30] MEDS ORDERED: SODIUM CHLORIDE 1,000 ML IV STA (08:49)
[2021-11-30] MEDS ORDERED: ACETAMINOPHEN 1000 MG/100 ML BAG IVPB ONE (08:50)
[2021-11-30] MEDS ORDERED: ONDANSETRON 4 MG/2 ML VIAL IVPUSH ONE (09:16)
[2021-11-30] MEDS ORDERED: ACETAMINOPHEN INJECTION 100 ML IVPB ONE (09:29)
[2021-11-30] MEDS ORDERED: ONDANSETRON 4 MG/2 ML VIAL ONE (09:30)
[2021-11-30 09:41] LABS: PH,URINE 5.5 (5.0-8.0); URINE APPEARANCE CLEAR; URINE BILIRUBIN NEGATIVE (NEGATIVE); URINE COLOR YELLOW; URINE GLUCOSE (UA) 3+ (NEGATIVE); URINE KETONE TRACE (NEGATIVE); URINE LEUK ESTERASE NEGATIVE (NEGATIVE); URINE NITRITE NEGATIVE (NEGATIVE); URINE PROTEIN TRACE (NEGATIVE); URINE UROBILINOGEN 0.2 mg/dL (0.2-1.0)
[2021-11-30 09:44] LABS: HCG,QUALITATIVE URINE Negative
[2021-11-30 10:11] LABS: BASO % 0.5 % (0-2.0); EOS % 0.9 % (0-4.5); HEMATOCRIT 45.5 % (32.4-45.2); HEMOGLOBIN 15.3 GM/dL (10.7-15.3); LYMPH % 29.5 % (8-40); MCH 29.3 pg (25.7-33.7); MCHC 33.7 g/dl (32.0-36.0); MEAN CELL VOLUME 86.8 fl (80-96); MEAN PLT VOLUME 7.9 fl (7.5-11.1); MONO % 4.2 % (3.8-10.2); NEUT % 64.9 % (42.8-82.8); PLATELET COUNT 353 10^3/uL (134-434); RBC 5.24 M/mm3 (3.60-5.2); RDW 12.9 % (11.6-15.6); WHITE BLOOD COUNT 12.9 K/mm3 (4.0-10.0)
[2021-11-30 11:20] LABS: CALCIUM 9.8 mg/dL (8.5-10.1)
[2021-11-30 11:21] LABS: BLOOD UREA NITROGEN 12.5 mg/dL (7-18)
[2021-11-30 11:22] LABS: CREATININE 0.7 mg/dL (0.55-1.3)
[2021-11-30 11:24] LABS: BILIRUBIN,TOTAL 0.4 mg/dL (0.2-1)
== END 2021-11-30 16:15 | disposition home or self-care (01) ==
LOC: JER 07:15 → JERFT 07:15
PROC: 3E033GC Introduction of Other Therapeutic Substance into Peripheral Vein, Percutaneous Approach (ICD-10-PCS; principal; 2021-11-30)
DX: N83.201 Unspecified ovarian cyst, right side (principal); N83.202 Unspecified ovarian cyst, left side
CPT/HCPCS: 36415; 74177-TC; 76856-TC; 80053; 81003; 83690; 84703; 85025; 87086; 99285-25; Q9967

== ENCOUNTER 2021-12-01 06:55 | Emergency (ER) | payer OTHER ==
[2021-12-01 07:15] VITALS: BP 123/82; PULSE 107; TEMP 98.4; BMI 40.2
[2021-12-01] MEDS ORDERED: KETOROLAC TROMETHAMINE 30 MG/1 ML VIAL IM ONE (08:48)
[2021-12-01] MEDS ORDERED: KETOROLAC TROMETHAMINE 30 MG/1 ML VIAL ONE (08:53)
== END 2021-12-01 09:02 | disposition home or self-care (01) ==
LOC: JER 06:55
PROC: 3E0233Z Introduction of Anti-inflammatory into Muscle, Percutaneous Approach (ICD-10-PCS; principal; 2021-12-01)
DX: S39.012A Strain of muscle, fascia and tendon of lower back, initial encounter (principal); X50.0XXA Overexertion from strenuous movement or load, initial encounter
CPT/HCPCS: 99284-25

== ENCOUNTER 2022-10-30 22:57 | Emergency (ER) | payer OTHER ==
[2022-10-30 23:13] VITALS: BP 139/76; PULSE 78; RESP 18; TEMP 98.4; BMI 40.8
[2022-10-30] MEDS ORDERED: ACETAMINOPHEN 500 MG TABLET (FP) PO ONE (23:53)
== END 2022-10-31 02:07 | disposition home or self-care (01) ==
LOC: JER 22:57
DX: R07.2 Precordial pain (principal); R06.02 Shortness of breath
CPT/HCPCS: 36415; 71046-TC-FY; 84484; 84703; 93005; 93010; 99285-25

== ENCOUNTER 2023-03-30 21:22 | Emergency (ER) | payer OTHER ==
[2023-03-30 21:32] VITALS: BP 119/78; PULSE 87; RESP 18; TEMP 98.4; BMI 41.1
[2023-03-30] MEDS ORDERED: ACETAMINOPHEN 500 MG TABLET (FP) PO ONE (22:07)
[2023-03-30] MEDS ORDERED: ACETAMINOPHEN 325 MG TABLET (FP) ONE (22:19)
[2023-03-30 22:47] LABS: PROTHROMBIN TIME (PATIENT) 11.6 SEC (9.7-13.0)
[2023-03-30 22:49] LABS: ACTIVATED PTT 31.2 SECONDS (25.2-36.5); BASO % 0.4 % (0-2.0); EOS % 1.1 % (0-4.5); HEMATOCRIT 41.2 % (32.4-45.2); HEMOGLOBIN 13.9 GM/dL (10.7-15.3); LYMPH % 33.4 % (8-40); MCH 30.2 pg (25.7-33.7); MCHC 33.8 g/dl (32.0-36.0); MEAN CELL VOLUME 89.2 fl (80-96); MEAN PLT VOLUME 7.9 fl (7.5-11.1); MONO % 6.9 % (3.8-10.2); NEUT % 58.2 % (42.8-82.8); PLATELET COUNT 309 10^3/uL (134-434); RBC 4.62 M/mm3 (3.60-5.2); RDW 12.7 % (11.6-15.6); WHITE BLOOD COUNT 10.6 K/mm3 (4.0-10.0)
[2023-03-30 22:52] LABS: CALCIUM 9.3 mg/dL (8.5-10.1)
[2023-03-30 22:53] LABS: ALBUMIN 3.6 g/dl (3.4-5.0); BLOOD UREA NITROGEN 11.3 mg/dL (7-18)
[2023-03-30 22:56] LABS: CREATININE 0.8 mg/dL (0.55-1.3)
[2023-03-30 22:58] LABS: BILIRUBIN,TOTAL 0.3 mg/dL (0.2-1); TOT PROT 7.2 g/dl (6.4-8.2)
[2023-03-30] MEDS ORDERED: KETOROLAC TROMETHAMINE 15 MG/ML VIAL IVPUSH ONE (23:07)
[2023-03-30] MEDS ORDERED: KETOROLAC TROMETHAMINE 15 MG/ML VIAL ONE (23:14)
== END 2023-03-31 00:57 | disposition home or self-care (01) ==
LOC: JER 21:22
PROC: 3E0333Z Introduction of Anti-inflammatory into Peripheral Vein, Percutaneous Approach (ICD-10-PCS; principal; 2023-03-30)
DX: R07.89 Other chest pain (principal); R73.9 Hyperglycemia, unspecified; R06.01 Orthopnea
CPT/HCPCS: 36415; 71046-TC-FY; 80053; 82962; 84443; 84484; 84703; 85025; 85610; 85730; 93005; 93010; 99285-25

== ENCOUNTER 2023-04-14 12:46 | Observation (INO) | payer OTHER ==
[2023-04-14 13:43] LABS: BASO % 0.7 % (0-2.0); EOS % 1.1 % (0-4.5); HEMATOCRIT 39.8 % (32.4-45.2); HEMOGLOBIN 13.7 GM/dL (10.7-15.3); LYMPH % 26.3 % (8-40); MCH 29.9 pg (25.7-33.7); MCHC 34.5 g/dl (32.0-36.0); MEAN CELL VOLUME 86.7 fl (80-96); MEAN PLT VOLUME 7.6 fl (7.5-11.1); MONO % 4.9 % (3.8-10.2); PLATELET COUNT 289 10^3/uL (134-434); RBC 4.59 M/mm3 (3.60-5.2); RDW 12.7 % (11.6-15.6); WHITE BLOOD COUNT 8.4 K/mm3 (4.0-10.0)
[2023-04-14] MEDS: SODIUM CHLORIDE 1,000 ML IV SCH (13:43)
[2023-04-14 13:51] LABS: INR 0.96 (0.83-1.09); PROTHROMBIN TIME (PATIENT) 11.1 SEC (9.7-13.0)
[2023-04-14 13:53] LABS: ACTIVATED PTT 29.1 SECONDS (25.2-36.5)
[2023-04-14] MEDS ORDERED: ACETAMINOPHEN 325 MG TABLET (FP) PO ONE (13:59)
[2023-04-14 14:11] LABS: POTASSIUM 4.1 mmol/L (3.5-5.1)
[2023-04-14 14:13] LABS: CALCIUM 8.6 mg/dL (8.5-10.1)
[2023-04-14 14:14] LABS: ALBUMIN 3.5 g/dl (3.4-5.0); BLOOD UREA NITROGEN 9.7 mg/dL (7-18)
[2023-04-14 14:17] LABS: CREATININE 0.7 mg/dL (0.55-1.3)
[2023-04-14 14:18] LABS: TOT PROT 6.8 g/dl (6.4-8.2)
[2023-04-14 14:19] LABS: BILIRUBIN,TOTAL 0.5 mg/dL (0.2-1)
[2023-04-14] MEDS ORDERED: ACETAMINOPHEN 325 MG TABLET (FP) ONE (14:27)
[2023-04-14 14:55] LABS: PH,URINE 5.5 (5.0-8.0); URINE APPEARANCE CLEAR; URINE BILIRUBIN NEGATIVE (NEGATIVE); URINE COLOR YELLOW; URINE GLUCOSE (UA) 3+ (NEGATIVE); URINE KETONE TRACE (NEGATIVE); URINE LEUK ESTERASE NEGATIVE (NEGATIVE); URINE NITRITE NEGATIVE (NEGATIVE); URINE PROTEIN NEGATIVE (NEGATIVE); URINE UROBILINOGEN 0.2 mg/dL (0.2-1.0)
[2023-04-14] MEDS ORDERED: ATORVASTATIN CA 20 MG TABLET (FP) PO ONE (17:10)
[2023-04-14] MEDS ORDERED: ASPIRIN 81 MG CHEWABLE TABLETS ONE (17:50)
[2023-04-14] MEDS ORDERED: ATORVASTATIN CA 20 MG TABLET (FP) ONE (17:50)
[2023-04-14] MEDS: ASPIRIN 81 MG CHEWABLE TABLETS PO SCH (17:59)
[2023-04-14] MEDS: INSULIN (NOVOLOG) ASPART 100 UNITS/ML 10ML VIAL SQ SCH (21:28)
[2023-04-14] MEDS: INSULIN (LEVEMIR) 100 UNITS/ML UNITS SQ SCH (21:28)
[2023-04-14 23:40] VITALS: BMI 41.0
[2023-04-15] MEDS ORDERED: ACETAMINOPHEN 1000 MG/100 ML BAG IVPB ONE ×2 (01:21→05:54)
[2023-04-15] MEDS: INSULIN (LEVEMIR) 100 UNITS/ML UNITS SQ SCH ×2 (06:06→21:31)
[2023-04-15] MEDS: SODIUM CHLORIDE 1,000 ML IV SCH ×2 (06:06→17:19)
[2023-04-15] MEDS: INSULIN (NOVOLOG) ASPART 100 UNITS/ML 10ML VIAL SQ SCH ×4 (06:06→21:31)
[2023-04-15 08:58] LABS: BASO % 0.8 % (0-2.0); EOS % 2.2 % (0-4.5); HEMATOCRIT 41.7 % (32.4-45.2); HEMOGLOBIN 14.6 GM/dL (10.7-15.3); LYMPH % 44.1 % (8-40); MCH 30.5 pg (25.7-33.7); MCHC 35.1 g/dl (32.0-36.0); MEAN CELL VOLUME 86.9 fl (80-96); MONO % 4.4 % (3.8-10.2); NEUT % 48.5 % (42.8-82.8); PLATELET COUNT 258 10^3/uL (134-434); RDW 12.8 % (11.6-15.6); WHITE BLOOD COUNT 6.7 K/mm3 (4.0-10.0)
[2023-04-15 09:22] LABS: MAGNESIUM 1.6 mg/dL (1.8-2.4)
[2023-04-15] MEDS: ASPIRIN 81 MG CHEWABLE TABLETS PO SCH (09:28)
[2023-04-15 09:30] LABS: CHOLESTEROL 204 mg/dL (50-200)
[2023-04-15 09:32] LABS: LDL CHOLESTEROL (ONLY SJRH) 118 mg/dL (5-100)
[2023-04-15 09:33] LABS: HDL CHOLESTEROL 38 mg/dL (40-60)
[2023-04-15] MEDS ORDERED: ATORVASTATIN CA 20 MG TABLET (FP) PO SCH (22:00)
[2023-04-16] MEDS ORDERED: MECLIZINE HCL 12.5 MG TABLET PO ONE (02:00)
[2023-04-16] MEDS: SODIUM CHLORIDE 1,000 ML IV SCH ×2 (02:02→16:32)
[2023-04-16] MEDS: metFORMIN HCL 500 MG TABLET (FP) PO SCH ×2 (06:10→16:32)
[2023-04-16] MEDS: INSULIN (NOVOLOG) ASPART 100 UNITS/ML 10ML VIAL SQ SCH ×3 (06:11→16:31)
[2023-04-16] MEDS ORDERED: INSULIN (LEVEMIR) 100 UNITS/ML UNITS SQ SCH (07:00)
[2023-04-16] MEDS ORDERED: INSULIN SLIDING SCALE (NOVOLOG) 1 VIAL SQ ONE (09:41)
[2023-04-16] MEDS: ASPIRIN 81 MG CHEWABLE TABLETS PO SCH (09:56)
[2023-04-16 19:12] VITALS: BP 131/68; PULSE 71; RESP 18; TEMP 97.5
== END 2023-04-16 19:11 | disposition home or self-care (01) ==
LOC: JER 12:46 → JERBED 16:57 → J4S 23:04
PROVIDERS: ADMIT Family Medicine; ATTEND Family Medicine
CPT/HCPCS: 36415; 70450-TC; 80053; 80061; 81003; 82550; 82553; 82962; 83036; 83735; 84443; 84484; 85025; 85610; 85730; 86850; 86900; 86901; 93005; 93010; 93306-TC; 97116-GP; 97162-GP; G0378

== ENCOUNTER 2024-03-14 01:42 | Emergency (ER) | payer OTHER ==
[2024-03-14 01:54] VITALS: RESP 18; BMI 38.0
[2024-03-14] MEDS ORDERED: ACETAMINOPHEN INJECTION 100 ML ONE ×2 (03:09→09:14)
[2024-03-14] MEDS: ACETAMINOPHEN 1000 MG/100 ML BAG IVPB ONE ×2 (03:26→09:19)
[2024-03-14 03:40] LABS: HEMATOCRIT 44.6 % (32.4-45.2); HEMOGLOBIN 15.1 GM/dL (10.7-15.3); LYMPH % 30.4 % (8-40); MCHC 33.9 g/dl (32.0-36.0); MEAN CELL VOLUME 88.4 fl (80-96); MEAN PLT VOLUME 7.8 fl (7.5-11.1); MONO % 6.3 % (3.8-10.2); NEUT % 61.3 % (42.8-82.8); PLATELET COUNT 350 10^3/uL (134-434); RBC 5.04 M/mm3 (3.60-5.2); RDW 12.7 % (11.6-15.6); WHITE BLOOD COUNT 9.9 K/mm3 (4.0-10.0)
[2024-03-14 03:46] LABS: INR 0.92 (0.83-1.09); PROTHROMBIN TIME (PATIENT) 10.6 SEC (9.7-13.0)
[2024-03-14 03:49] LABS: ACTIVATED PTT 31.5 SECONDS (25.2-36.5)
[2024-03-14 04:11] LABS: CHLORIDE 104 mmol/L (98-107); POTASSIUM 4.2 mmol/L (3.5-5.1); SODIUM 138 mmol/L (136-145)
[2024-03-14 04:13] LABS: CALCIUM 10.1 mg/dL (8.5-10.1)
[2024-03-14 04:14] LABS: ALBUMIN 4.1 g/dl (3.4-5.0); ANION GAP 9 mmol/L (4-13); BLOOD UREA NITROGEN 7.8 mg/dL (7-18); CO2 25 mmol/L (21-32); GLUCOSE,RANDOM 186 mg/dL (74-106)
[2024-03-14 04:17] LABS: CREATININE 0.6 mg/dL (0.55-1.3); SGOT/AST 22 U/L (15-37); SGPT/ALT 48 U/L (13-61)
[2024-03-14 04:18] LABS: BILIRUBIN,TOTAL 0.4 mg/dL (0.2-1)
[2024-03-14 04:19] LABS: TOT PROT 7.6 g/dl (6.4-8.2)
[2024-03-14 04:20] LABS: ALK PHOS 66 U/L (45-117)
[2024-03-14 04:53] LABS: PH,URINE 5.5 (5.0-8.0); URINE APPEARANCE CLEAR; URINE BILIRUBIN NEGATIVE (NEGATIVE); URINE COLOR YELLOW; URINE GLUCOSE (UA) 3+ (NEGATIVE); URINE KETONE NEGATIVE (NEGATIVE); URINE LEUK ESTERASE NEGATIVE (NEGATIVE); URINE NITRITE NEGATIVE (NEGATIVE); URINE PROTEIN NEGATIVE (NEGATIVE); URINE UROBILINOGEN 0.2 mg/dL (0.2-1.0)
[2024-03-14 07:18] LABS: HCG,QUALITATIVE URINE Positive
[2024-03-14] MEDS: KETOROLAC TROMETHAMINE 15 MG/ML VIAL IVPUSH ONE (07:40)
[2024-03-14 08:14] VITALS: BP 117/74; PULSE 94; TEMP 97.2
== END 2024-03-14 11:26 | disposition home or self-care (01) ==
LOC: JER 01:42
PROC: 3E033NZ Introduction of Analgesics, Hypnotics, Sedatives into Peripheral Vein, Percutaneous Approach (ICD-10-PCS; principal; 2024-03-14)
PROC: 3E033NZ Introduction of Analgesics, Hypnotics, Sedatives into Peripheral Vein, Percutaneous Approach (ICD-10-PCS; 2024-03-14)
DX: N83.201 Unspecified ovarian cyst, right side (principal); R10.31 Right lower quadrant pain; R19.7 Diarrhea, unspecified
CPT/HCPCS: 36415; 74177-TC; 76830-TC; 80053; 81003; 84702; 84703; 85025; 85610; 85730; 86850; 86900; 86901; 87086; 93005; 93010; 99285-25; J0131; Q9967

== ENCOUNTER 2024-09-17 18:58 | Emergency (ER) | payer OTHER ==
[2024-09-17 19:13] VITALS: BP 129/83; PULSE 107; RESP 18; TEMP 98; BMI 39.6
[2024-09-17] MEDS ORDERED: KETOROLAC TROMETHAMINE 30 MG/1 ML VIAL ONE (20:16)
[2024-09-17] MEDS: KETOROLAC TROMETHAMINE 30 MG/1 ML VIAL IM ONE (20:21)
[2024-09-17 21:15] LABS: PH,URINE 5.5 (5.0-8.0); URINE APPEARANCE CLEAR; URINE BILIRUBIN NEGATIVE (NEGATIVE); URINE COLOR YELLOW; URINE GLUCOSE (UA) 3+ (NEGATIVE); URINE KETONE TRACE (NEGATIVE); URINE LEUK ESTERASE NEGATIVE (NEGATIVE); URINE NITRITE NEGATIVE (NEGATIVE); URINE PROTEIN NEGATIVE (NEGATIVE); URINE UROBILINOGEN 0.2 mg/dL (0.2-1.0)
== END 2024-09-17 21:35 | disposition home or self-care (01) ==
LOC: JERFT 18:58
PROC: 3E0233Z Introduction of Anti-inflammatory into Muscle, Percutaneous Approach (ICD-10-PCS; principal; 2024-09-17)
DX: M54.50 Low back pain, unspecified (principal)
CPT/HCPCS: 81003; 84703; 87077; 87086; 99284-25

== ENCOUNTER 2025-01-16 20:34 | Emergency (ER) | payer OTHER ==
[2025-01-16 20:43] VITALS: RESP 18; TEMP 99; BMI 38.2
[2025-01-16] MEDS: IBUPROFEN 600 MG TABLET (FP) PO ONE (21:20)
[2025-01-16] MEDS: ACETAMINOPHEN 325 MG TABLET (FP) PO ONE (21:26)
[2025-01-16] MEDS ORDERED: IBUPROFEN 600 MG TABLET (FP) PO ONE (21:27)
[2025-01-16] MEDS ORDERED: ACETAMINOPHEN 325 MG TABLET (FP) ONE (21:28)
[2025-01-16] MEDS ORDERED: LIDOCAINE 5% TOPICAL PATCH ONE (21:30)
[2025-01-16] MEDS: LIDOCAINE 5% TOPICAL PATCH TP ONE (21:32)
[2025-01-16 21:48] LABS: ABSOLUTE IMMATURE GRANULOCYTES 0.09 x10^3/uL (0.0-0.031); BASOPHILS # 0.03 x10^3/uL (0.01-0.08); EOSINOPHIL % 0.5 % (0.7-5.8); EOSINOPHILS # 0.04 x10^3/uL (0.04-0.36); MCHC 33.3 g/dl (32.2-35.5); MEAN CELL VOLUME 89.9 fl (79.4-94.8); MEAN PLT VOLUME 9.1 fl (9.4-12.3); MONOCYTE # 0.83 x10^3/uL (0.24-0.86); MONOCYTE % 10.6 % (4.7-12.5); RDW 12.6 % (12.1-16.5)
[2025-01-16 22:23] LABS: CO2 24.0 mmol/L (21-32); GLUCOSE,RANDOM 248.0 mg/dL (74-106)
[2025-01-16 22:26] LABS: CREATININE 0.7 mg/dL (0.55-1.3); SGOT/AST 21.0 U/L (15-37); SGPT/ALT 37.0 U/L (13-61)
[2025-01-16 22:28] LABS: TOT PROT 7.0 g/dl (6.4-8.2)
[2025-01-16 22:29] LABS: ALK PHOS 69.0 U/L (45-117)
[2025-01-16 22:53] VITALS: BP 121/76
[2025-01-16] MEDS: LIDOCAINE PATCH REMOVAL MC SCH (23:15)
[2025-01-17 00:09] VITALS: PULSE 106
[2025-01-17 00:44] LABS: HCV DIAGNOSTIC IN-HOUSE W/RFLX NON-REACTIVE (NONREACTIVE)
[2025-01-17 00:49] LABS: HIV INTERPRETATION NEGATIVE (NEGATIVE)
== END 2025-01-17 00:15 | disposition home or self-care (01) ==
LOC: JER 20:34
DX: M62.830 Muscle spasm of back (principal); M54.50 Low back pain, unspecified; J02.9 Acute pharyngitis, unspecified; W18.2XXA Fall in (into) shower or empty bathtub, initial encounter
CPT/HCPCS: 36415; 72131-TC; 72170-TC-FY; 73502-TC-RT-FY; 80053; 84703; 85025; 86803; 87389; 87651; 93005; 93010; 99285-25